=== PATIENT | male | born 1945 | race African-American/Black ===

== ENCOUNTER 2016-06-07 10:38 | Emergency (ER) | payer MEDICARE, OTHER ==
[~2016-06-07] VITALS: Ht 165.1 cm; Wt 59.0 kg
[~2016-06-07 10:38] MED LIST: ACET500T68 PO; ASPI-482 PO; ATOR10TA60 PO; FAMO20TA5 PO; LISI10TA2 PO; MEGE40TA PO; MELA3TAB PO
[2016-06-07] MEDS ORDERED: NAPROXEN 250 MG TABLET PO STA (11:26)
--- NOTE | 2016-06-07 11:33 | PHYS DOC ---
Past Medical History Past Medical History: GERD, High Cholesterol, Hypertension Additional Past Medical Histor: ALCOHOL ABUSE Past Surgical History: Other Additional Past Surgical Histo: UNKNOWN Alcohol Use: Heavy Drug Use: None Adult General Chief Complaint Chief Complaint: TESTICULAR PAIN OR INJURY HPI HPI Patient is a 70 year old male who presents with 2-3 weeks of right testicle pain and swelling, constant, gradually worsening, severe, achy. Denies f/c, n/v , hematuria, dysuria, abdominal pain, diarrhea, constipation. No urinary hesitation or frequency. No penile discharge. Review of Systems Review of Systems Constitutional: Denies fever or chills [] Eyes: Denies change in visual acuity, redness, or eye pain [] HENT: Denies nasal congestion or sore throat [] Respiratory: Denies cough or shortness of breath [] Cardiovascular: No additional information not addressed in HPI [] GI: Denies abdominal pain, nausea, vomiting, bloody stools or diarrhea [] : Denies dysuria or hematuria [] Musculoskeletal: Denies back pain or joint pain [] Integument: Denies rash or skin lesions [] Neurologic: Denies headache, focal weakness or sensory changes [] Endocrine: Denies polyuria or polydipsia [] Current Medications Current Medications Current Medications Medications (Trade) Dose Ordered Sig/Deepak Start Time Stop Time Status Last Admin Dose Admin Naproxen (Naprosyn) 250 mg 1X STAT 06/07/16 11:26 06/07/16 11:29 DC 06/07/16 12:06 250 MG Allergies Allergies Allergies Coded Allergies Type Severity Reaction Last Updated Verified No Known Drug Allergies 04/03/13 No Physical Exam Physical Exam Constitutional: Well developed, well nourished, no acute distress, non-toxic appearance. [] HENT: Normocephalic, atraumatic, bilateral external ears normal, oropharynx moist, nose normal. [] Eyes: PERRLA, EOMI. [] Neck: Normal range of motion, supple. [] Cardiovascular: Heart rate regular rhythm [] Lungs & Thorax: Bilateral breath sounds clear to auscultation [] Abdomen: Bowel sounds normal, soft, no tenderness. [] Genitourinary: No rash or discoloration, no penile discharge, has right testicle swelling that is tender, scrotum appears normal without rash/ discoloration/induration/warmth/crepitance, no perineal tenderness or palpable abnormality Skin: Warm, dry, no erythema, no rash. [] Back: Normal ROM. [] Extremities: No tenderness, ROM intact. [] Neurologic: Alert and oriented X 3, normal motor function, normal sensory function, no focal deficits noted. [] Psychologic: Affect normal, judgement normal, mood normal. [] Current Patient Data Vital Signs Vital Signs Date Time Temp Pulse Resp B/P Pulse Ox O2 Delivery O2 Flow Rate FiO2 06/07/16 12:00 82 18 138/77 98 Room Air 06/07/16 10:57 97.7 97.7 Lab Values Laboratory Tests Test 06/07/16 11:37 Urine Collection Type U cath Urine Color Rita Urine Clarity Cloudy Urine pH 6.0 Urine Specific [place] 1.020 Urine Protein Negativemg/dL (NEG-TRACE) Urine Glucose (UA) Negativemg/dL (NEG) Urine Ketones (Stick) Negativemg/dL (NEG) Urine Blood Trace (NEG) Urine Nitrite Positive (NEG) Urine Bilirubin Small (NEG) Urine Urobilinogen Dipstick 2.0mg/dL (0.2 mg/dL) Urine Leukocyte Esterase Large (NEG) Urine RBC 1-2/HPF (0-2) Urine WBC Tntc/HPF (0-4) Urine Bacteria Many/HPF (0-FEW) Radiology/Procedures Radiology/Procedures Ultrasound testicle/scrotum IMPRESSION: No testicular torsion is seen. Sonographic findings are consistent with bilateral epididymoorchitis worse on the right side. DICTATED and SIGNED BY: BACILIO MACK MD DATE: 06/07/16 8716 Course & Med Decision Making Course & Med Decision Making Pertinent Labs and Imaging studies reviewed. (See chart for details) Urine shows signs of infection and ultrasound shows signs of epididymoorchitis. Will treat with levofloxacin and NSAIDs. Recommend follow-up with urology and his primary care doctor. He and family understand and agree with plan. Dragon Disclaimer Dragon Disclaimer This electronic medical record was generated, in whole or in part, using a voice recognition dictation system. Departure Departure Impression: Primary Impression: Epididymo-orchitis without abscess Additional Impression: Acute cystitis without hematuria Disposition: 01 HOME, SELF-CARE Condition: STABLE Referrals: CLAUDIA GAO MD (PCP) CORNELIO FELIX DO Patient Instructions: Epididymitis Additional Instructions: Take levofloxacin as prescribed. Take naproxen twice a day as needed to help with pain and swelling; always take naproxen with a meal. Wear supportive underwear to help with pain. Follow-up with urology clinic and your primary care doctor within one week. Please call for appointment. Return for any concerns. Scripts Naproxen 375 Mg Tablet1 Tab PO BID #30 TAB Prov:Lesli MCCORMICK MD 06/07/16 Levofloxacin 500 Mg Tablet1 Tab PO DAILY #10 TAB Prov:Lesli MCCORMICK MD 06/07/16 Problem Qualifiers Lesli MCCORMICK MD Jun 07, 2016 11:33
[2016-06-07 11:45] LABS: BILIRUBIN,URINE SMALL (NEG); GLUCOSE,URINE NEGATIVE (NEG); NITRITE,URINE POSITIVE (NEG); PROTEIN,URINE NEGATIVE (NEG-TRACE)
[2016-06-07 11:59] LABS: BACTERIA,URINE MANY /HPF (0-FEW); WBC,URINE TNTC /HPF (0-4)
[2016-06-07 12:00] VITALS: BP 138/77
[2016-06-07] MEDS ORDERED: NAPR375T3 PO (12:32)
[2016-06-07] MEDS ORDERED: LEVO500T8 PO (12:32)
--- NOTE | 2016-06-07 12:41 | RAD ---
Duplex sonography of the scrotum and testicles History: Urinary tract infection with painful testes. Findings: Duplex sonography of the testicles and scrotum was performed including raymond scale evaluation and color flow and waveform spectral analysis. The longitudinal and AP and transverse dimensions of the right testicle are 2.8 cm and 2.7 cm and 2.5 cm respectively. The longitudinal and AP and transverse dimensions of the left testicle are 3.6 cm and 2.0 cm and 2.4 cm respectively. Both testicles demonstrate a mottled appearance but no discrete mass is seen. There is moderate enlargement of the right epididymis. There is moderate enlargement of the left epididymis. Hyperemia of the epididymis and testicles is seen on both sides more so on the right side. Small right-sided hydrocele is seen. IMPRESSION: No testicular torsion is seen. Sonographic findings are consistent with bilateral epididymoorchitis worse on the right side.
== END 2016-06-07 12:48 | disposition home or self-care (01) ==
LOC: ER 10:38
DX: N45.3 Epididymo-orchitis (principal); N30.00 Acute cystitis without hematuria; K21.9 Gastro-esophageal reflux disease without esophagitis; E78.00 Pure hypercholesterolemia, unspecified; I10 Essential (primary) hypertension
CPT/HCPCS: 76870; 81001; 87086; 99285-25

== ENCOUNTER 2017-07-15 18:56 | Emergency (ER) | payer MEDICARE, OTHER ==
[2017-07-15] MEDS: FLUORESCEIN OPHTH TEST STRIP. OS (19:35)
[2017-07-15] MEDS: TETRACAINE 0.5% OPHTH SOLUTION 4ML BOTTLE. OS (19:35)
== END 2017-07-15 20:23 | disposition home or self-care (01) ==
LOC: ER 18:56
DX: S05.02XA Injury of conjunctiva and corneal abrasion without foreign body, left eye, initial encounter (principal); K21.9 Gastro-esophageal reflux disease without esophagitis; E78.00 Pure hypercholesterolemia, unspecified; I10 Essential (primary) hypertension; F17.200 Nicotine dependence, unspecified, uncomplicated; X58.XXXA Exposure to other specified factors, initial encounter; Y93.89 Activity, other specified; Y99.8 Other external cause status; Y92.096 Garden or yard of other non-institutional residence as the place of occurrence of the external cause
CPT/HCPCS: 99283

== ENCOUNTER 2018-07-09 13:38 | Inpatient (IN) | payer MEDICARE, OTHER ==
[~2018-07-09] VITALS: Ht 167.6 cm; Wt 55.8 kg
[~2018-07-09 13:38] MED LIST changes: +LEVO500T8 PO; -MELA3TAB PO; +MELA3TAB2 PO; +NAPR-695 PO; +TOBR5DRO2 OS
[2018-07-09] MEDS ORDERED: IV NORMAL SALINE 1000ML BAG 1,000 ML IV ONE ×2 (14:00→15:45)
--- NOTE | 2018-07-09 14:15 | RAD ---
CT HEAD INDICATION: Headache COMPARISON: 09/13/2015 Exposure: One or more of the following individualized dose reduction techniques were utilized for this examination: 1. Automated exposure control 2. Adjustment of the mA and/or kV according to patient size 3. Use of iterative reconstruction technique TECHNIQUE: 5 mm contiguous axial images were obtained from the skull base to the vertex in both bone and soft tissue algorithm. FINDINGS: Mild bilateral periventricular white matter hypodensities likely chronic small vessel ischemic disease. No evidence of acute intracranial hemorrhage. No extra-axial fluid collections. 1.9 cm sellar/suprasellar mass identified similar to prior exam.. Ventricular size is appropriate. Basal cisterns are patent. No fractures identified.Nur-white differentiation is preserved.Globes and orbits are within normal limits. Paranasal sinuses and mastoid air cells are clear. IMPRESSION: 1. A 1.9 cm sella/suprasellar mass similar to prior exam. 2. Otherwise no acute intracranial findings. Electronically signed by: Trevor Brizuela MD (07/09/2018 2:12 PM) [facility]
[2018-07-09 14:26] LABS: BASO % 1 % (0-3); EOS # 0.2 x10^3/uL (0.0-0.7); EOS % 4 % (0-3); HEMATOCRIT 38.6 % (39.0-53.0); HEMOGLOBIN 12.9 g/dL (13.0-17.5); LYMPH # 2.2 x10^3/uL (1.0-4.8); LYMPH % 44 % (24-48); MEAN CORPUSCULAR HEMOGLOBIN 32 pg (25-35); MEAN CORPUSCULAR HGB CONC 33 g/dL (31-37); MEAN CORPUSCULAR VOLUME 94 fL (79-100); MONO # 0.5 x10^3/uL (0.0-1.1); MONO % 10 % (0-9); NEUT # 2.1 x10^3uL (1.8-7.7); NEUT % 41 % (31-73); PLATELET COUNT 209 x10^3/uL (140-400); RED BLOOD COUNT 4.09 x10^6/uL (4.30-5.70); RED CELL DISTRIBUTION WIDTH 12.7 % (11.5-14.5); WHITE BLOOD COUNT 5.1 x10^3/uL (4.0-11.0)
--- NOTE | 2018-07-09 14:29 | RAD ---
EXAM: CHEST 1 VIEW History: Weakness COMPARISON: 09/13/2015 TECHNIQUE: Single portable radiograph of the chest FINDINGS: The cardiac silhouette is unremarkable. The lungs are clear bilaterally. The costophrenic sulci are clear and well demarcated. IMPRESSION: No radiographic evidence of an acute cardiopulmonary process. Electronically signed by: Trevor Brizuela MD (07/09/2018 2:26 PM) [facility]
[2018-07-09 14:32] LABS: BILIRUBIN,URINE SMALL (NEG); CLARITY,URINE CLEAR; COLOR,URINE AMBER; NITRITE,URINE NEGATIVE (NEG); PH,URINE 5.5; PROTEIN,URINE NEGATIVE (NEG-TRACE)
[2018-07-09 14:43] LABS: PROTHROMBIN TIME PATIENT 14.1 SEC (11.7-14.0)
[2018-07-09 14:46] LABS: AMPHETAMINE/METHAMPHETAMINE NEG (NEG); BARBITURATES NEG (NEG); BENZODIAZEPINES NEG (NEG); CANNABINOIDS NEG (NEG); COCAINE NEG (NEG); METHADONE NEG (NEG); OPIATES NEG (NEG); PHENCYCLIDINE NEG (NEG)
[2018-07-09 14:47] LABS: CALCIUM 8.5 mg/dL (8.5-10.1); CREATININE 1.2 mg/dL (0.7-1.3); GFR 71.8; POTASSIUM 4.2 mmol/L (3.5-5.1)
[2018-07-09 14:49] LABS: BACTERIA,URINE 0 /HPF (0-FEW); RBC,URINE 0 /HPF (0-2); SQUAMOUS EPITHELIAL CELL,UR FEW /LPF; WBC,URINE 0 /HPF (0-4)
[2018-07-09 14:52] LABS: ALBUMIN 3.4 g/dL (3.4-5.0); ALBUMIN/GLOBULIN RATIO 0.9 (1.0-1.7); MAGNESIUM 1.8 mg/dL (1.8-2.4); TOTAL PROTEIN 7.2 g/dL (6.4-8.2)
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
[2018-07-09] MEDS ORDERED: cloNIDine HCL 0.1 MG TABLET PO PRN (15:45)
[2018-07-09] MEDS ORDERED: ONDANSETRON PF 4 MG/2 ML VIAL. IV PRN (15:45)
[2018-07-09] MEDS ORDERED: ACETAMINOPHEN 325 MG TABLET. PO PRN (15:45)
[2018-07-09 16:27] VITALS: BP 169/92
--- NOTE | 2018-07-09 16:52 | NUR ---
pt admitted to room 508. daughter Marya at bedside. oriented to room and call light. Addendum: 07/09/18 at 1657 by JUDITH WOODS RN daughter reports pt is supposed to take medication for his blood pressure but has refused since 2015
[2018-07-09 19:00] VITALS: BP 169/95
[2018-07-09 23:01] VITALS: BP 162/73
[2018-07-10 03:06] VITALS: BP 142/84
[2018-07-10 07:00] VITALS: BP 131/74
[2018-07-10 10:53] VITALS: BP 131/65
--- NOTE | 2018-07-10 11:04 | PDOC ---
Provider Note Provider Note Patient seen. History and Physical and combined discharge summary dictated. See dictation#[id number] TOR RINALDI MD Jul 10, 2018 11:04
[2018-07-10] MEDS ORDERED: AMLO5TAB10 PO (11:07)
[2018-07-10] MEDS ORDERED: ACET325T9 PO (11:07)
--- NOTE | 2018-07-10 11:09 | DISCH ---
DISCHARGE INSTRUCTIONS Condition on Discharge Condition on Discharge: Stable Activity After Discharge Activity Instructions for Disc: Resume previous activity Diet after Discharge Diet after Discharge: No Added Salt Checks after Discharge Checks after discharge: Check blood press - daily Contacting the after DC Call your doctor for: Concerns you may have Follow-Up Follow up with: in 5 days TOR RINALDI MD Jul 10, 2018 11:09
--- NOTE | 2018-07-10 11:23 | EKG ---
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
--- NOTE | 2018-07-10 11:27 | NUR ---
discharge order in for patient. however, per Dr. Rowe, pt cannot leave until neurology signs off.
[2018-07-10] MEDS ORDERED: amLODIPine BESYLATE 5 MG TABLET PO SCH (11:30)
[2018-07-10 12:17] VITALS: BP 131/65
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
--- NOTE | 2018-07-10 13:45 | NUR ---
pt discharged home w/ daughter Marya. meds and follow up reviewed. pt educated on smoke cessation again. stable upon DC. pt had already removed IV during night.
--- NOTE | 2018-07-10 14:17 | HP ---
ADMIT DATE: 07/09/2018 This is a combined history and physical and discharge summary. HISTORY OF PRESENTING ILLNESS: This 73-year-old male presented to the Emergency Room yesterday because of weakness, poor oral intake and headaches. Headaches were 8/10. In the Emergency Room, the patient was evaluated. A CT scan of head showed a 1.9 cm sellar and suprasellar mass similar to prior exam. No acute intracranial changes noted otherwise. Chest x-ray did not show any acute changes. WBC count was 5.1, hemoglobin 12.9, polys 41. Sodium 133, potassium 4.2, BUN 15, creatinine 1.2, AST 43, albumin 3.4. Troponin less than 0.017. BNP 206. Thyroid function was 2.352. Urine drug screen is negative. Urinalysis is negative also except for small bilirubin. Because of the headaches, the patient was admitted for further evaluation and management. REVIEW OF SYSTEMS: At present time, the patient denies any chest pains, nausea, vomiting, abdominal pain, headaches or any other issues. Even per staff, the patient has denied any pain or headache since he has been here. He is not a good historian, unable to do full systems review even though he is responding. No history of fall or trauma. No fever or chills. No dysuria. No diarrhea. No signs or symptoms suggestive of any focal neurovascular deficit. PAST MEDICAL HISTORY: The patient was last admitted here in 09/2015. At that time, he had metabolic encephalopathy, drug abuse with cocaine and marijuana in the urine, acute kidney injury that required hydration, chronic pituitary adenoma and UTI with E. coli. He has a history of hypertension, hyperlipidemia, gastroesophageal reflux disease, peptic ulcer disease and osteoarthritis. PAST SURGICAL HISTORY: He has had a hernia repair. FAMILY HISTORY: Brother had cancer. SOCIAL HISTORY: Half pack per day of tobacco for over 40 years. History of heavy alcohol use and drug abuse, apparently quit 7 years ago but during the previous admission in 2015, he had marijuana and cocaine in the urine. MEDICATIONS: The patient is supposed to be on some medications, but apparently he has not been taking any. ALLERGIES: None known any. PHYSICAL EXAMINATION: GENERAL: The patient is an elderly male who is alert, oriented, but has cognitive deficits, not in any acute distress. EYES: Pupils reacting to light. Conjunctivae pale. Sclerae muddy. HENT: Unremarkable. NECK: Supple. JVP normal. No thyromegaly. Trachea midline. LUNGS: Clear. CARDIOVASCULAR: S1, S2 regular. ABDOMEN: Soft, nontender, no guarding, no rigidity. Bowel sounds present. EXTREMITIES: No edema. CENTRAL NERVOUS SYSTEM: The patient is moving all extremities. No acute changes noted. He is alert and responsive, may have some cognitive deficits. LABORATORY FINDINGS: As noted earlier. FINAL DIAGNOSES: 1. Headaches, etiology not clear. 2. Chronic pituitary adenoma, 1.9 cm mass, stable. 3. Gastroesophageal reflux disease. 4. History of hypertension. 5. History of hyperlipidemia. 6. Peptic ulcer disease. 7. Osteoarthritis. 8. Likely dementia. PLAN: The patient is currently not taking any medications. I will send him home on Tylenol 650 mg p.o. q.6 hours p.r.n. for pain or headaches. A Neurology consult has been obtained with Dr. Crawford for Neurology evaluation and management. If the patient remains stable and if it is okay with Dr. Crawford, he can be discharged home today. See Dr. Guzmán in 5 days. For other discharge instructions, please refer to the discharge papers. CONDITION AT THE TIME OF DISCHARGE: Stable and improving. DISPOSITION: Home. ACTIVITY: As tolerated. For other details, please refer the discharge orders. TOR RINALDI MD DR: FAUSTO/jaun JOB#: [id number] / [id number] Beata Moody MD
== END 2018-07-10 13:51 | disposition home or self-care (01) | DRG 103 ==
LOC: ER 13:38 → 5 NORTH 15:00
PROVIDERS: ADMIT Internal Medicine; ATTEND Internal Medicine
DX: R51 Headache (principal); E78.5 Hyperlipidemia, unspecified; I10 Essential (primary) hypertension; K21.9 Gastro-esophageal reflux disease without esophagitis; E78.00 Pure hypercholesterolemia, unspecified; F02.80 Dementia in other diseases classified elsewhere, unspecified severity, without behavioral disturbance, psychotic disturbance, mood disturbance, and anxiety; E86.0 Dehydration; D35.2 Benign neoplasm of pituitary gland; M19.90 Unspecified osteoarthritis, unspecified site; G30.9 Alzheimer's disease, unspecified; Z87.11 Personal history of peptic ulcer disease; Z80.9 Family history of malignant neoplasm, unspecified
CPT/HCPCS: 36415; 70450; 71045; 80053; 80307; 81001; 82553; 83690; 83735; 83880; 84443; 84484; 85025; 85610; 85730; 93005; 96360; J7030; 99285-25

== ENCOUNTER 2018-08-17 13:08 | Emergency (ER) | payer MEDICARE, OTHER ==
[~2018-08-17] VITALS: Ht 165.1 cm; Wt 53.5 kg
[~2018-08-17 13:08] MED LIST changes: +ACET325T9 PO; +AMLO5TAB10 PO
[2018-08-17] MEDS ORDERED: IV NORMAL SALINE 1000ML BAG 1,000 ML IV ONE (14:15)
--- NOTE | 2018-08-17 14:44 | RAD ---
Chest radiograph 08/17/2018 2:15 PM INDICATION: Altered mental status COMPARISON: July 09, 2018 TECHNIQUE: Frontal view of the chest is provided. FINDINGS: The cardiomediastinal silhouette is within normal limits. There are no pleural effusions. There is no pulmonary vascular congestion. There is no pneumothorax. The lungs are clear. No significant osseous abnormality is identified. Prominent gas-filled bowel loops are identified in the upper abdomen. IMPRESSION: No acute cardiopulmonary process. Prominent gas-filled bowel loops are identified in the upper abdomen may represent ileus. Electronically signed by: Sylvia Pena MD (08/17/2018 2:41 PM) [id number]
--- NOTE | 2018-08-17 14:51 | RAD ---
PQRS Compliance Statement: One or more of the following individualized dose reduction techniques were utilized for this examination: 1. Automated exposure control 2. Adjustment of the mA and/or kV according to patient size 3. Use of iterative reconstruction technique CT head without contrast 08/17/2018 2:15 PM INDICATION: Altered mental status COMPARISON: July 09, 2018 TECHNIQUE: Multiple axial CT images of the head were obtained from skull base through the vertex without intravenous contrast. 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 Ventricles, sulci and basal cisterns are within normal limits. There is no hydrocephalus. Low-attenuation in the periventricular white matter is suggestive of chronic small vessel ischemic changes. Nur-white matter differentiation is normal. There is no acute intracranial hemorrhage. There is no mass effect or midline shift. Posterior fossa is normal in appearance. Visualized portions of the orbits are normal. Paranasal sinuses are well aerated. Mastoid air cells are well aerated. Scalp and calvaria are normal. Stable 12 mm cystic lesion along the left skin superficial to the parotid gland. IMPRESSION: No acute intracranial hemorrhage. Stable 2.3 cm sellar and suprasellar mass. Low-attenuation in the periventricular white matter is suggestive of chronic small vessel ischemic changes. Stable 12 mm cystic lesion superficial left parotid gland, identified along the skin.. Electronically signed by: Sylvia Pena MD (08/17/2018 2:49 PM) [id number]
[2018-08-17 14:55] LABS: BASO % 1 % (0-3); EOS # 0.1 x10^3/uL (0.0-0.7); EOS % 3 % (0-3); HEMATOCRIT 36.1 % (39.0-53.0); HEMOGLOBIN 12.5 g/dL (13.0-17.5); LYMPH # 1.6 x10^3/uL (1.0-4.8); LYMPH % 38 % (24-48); MEAN CORPUSCULAR HEMOGLOBIN 33 pg (25-35); MEAN CORPUSCULAR HGB CONC 35 g/dL (31-37); MEAN CORPUSCULAR VOLUME 95 fL (79-100); MONO # 0.5 x10^3/uL (0.0-1.1); MONO % 11 % (0-9); NEUT # 2.1 x10^3/uL (1.8-7.7); NEUT % 48 % (31-73); PLATELET COUNT 204 x10^3/uL (140-400); RED BLOOD COUNT 3.81 x10^6/uL (4.30-5.70); RED CELL DISTRIBUTION WIDTH 12.5 % (11.5-14.5); WHITE BLOOD COUNT 4.3 x10^3/uL (4.0-11.0)
[2018-08-17 15:00] LABS: CALCIUM 8.7 mg/dL (8.5-10.1); CREATININE 1.1 mg/dL (0.7-1.3); GFR 79.4; POTASSIUM 4.2 mmol/L (3.5-5.1)
[2018-08-17 15:06] LABS: PROTHROMBIN TIME PATIENT 14.8 SEC (11.7-14.0)
--- NOTE | 2018-08-17 15:06 | EKG ---
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
[2018-08-17 15:13] LABS: ALBUMIN 3.5 g/dL (3.4-5.0); ALBUMIN/GLOBULIN RATIO 0.8 (1.0-1.7); MAGNESIUM 2.1 mg/dL (1.8-2.4); TOTAL BILIRUBIN 1.5 mg/dL (0.2-1.0); TOTAL PROTEIN 7.9 g/dL (6.4-8.2)
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
[2018-08-17 16:56] LABS: BILIRUBIN,URINE NEGATIVE (NEG); CLARITY,URINE CLEAR; COLOR,URINE YELLOW; NITRITE,URINE NEGATIVE (NEG); PH,URINE 6.5; PROTEIN,URINE NEGATIVE (NEG-TRACE); UROBILINOGEN,URINE >=8.0 mg/dL (0.2 mg/dL)
[2018-08-17 17:03] LABS: BARBITURATES NEG (NEG); BENZODIAZEPINES NEG (NEG); CANNABINOIDS NEG (NEG); COCAINE NEG (NEG); METHADONE NEG (NEG); OPIATES NEG (NEG); PHENCYCLIDINE NEG (NEG)
[2018-08-17 17:06] LABS: BACTERIA,URINE 0 /HPF (0-FEW); RBC,URINE 0 /HPF (0-2); SQUAMOUS EPITHELIAL CELL,UR FEW /LPF
[2018-08-17 17:07] LABS: AMPHETAMINE/METHAMPHETAMINE NEG (NEG)
[2018-08-17 17:15] VITALS: BP 130/77
== END 2018-08-17 17:48 | disposition home or self-care (01) ==
LOC: ER 13:08
DX: R41.82 Altered mental status, unspecified (principal); F03.90 Unspecified dementia, unspecified severity, without behavioral disturbance, psychotic disturbance, mood disturbance, and anxiety; K21.9 Gastro-esophageal reflux disease without esophagitis; E78.00 Pure hypercholesterolemia, unspecified; I10 Essential (primary) hypertension; R41.841 Cognitive communication deficit; Z90.49 Acquired absence of other specified parts of digestive tract
CPT/HCPCS: 36415; 70450; 71045; 80053; 80307; 81001; 82140; 83605; 83690; 83735; 84484; 85025; 85610; 85730; 87086; 93005; 96360; 99285; J7030

== ENCOUNTER 2018-10-22 20:59 | Inpatient (IN) | payer MEDICARE, OTHER ==
[~2018-10-22] VITALS: Ht 172.7 cm; Wt 48.5 kg
[~2018-10-22 20:59] MED LIST changes: -MELA3TAB2 PO; +MELA3TAB56 PO
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
[2018-10-22 21:40] LABS: BASO # 0.1 x10^3/uL (0.0-0.2); BASO % 1 % (0-3); EOS # 0.1 x10^3/uL (0.0-0.7); EOS % 2 % (0-3); HEMATOCRIT 32.4 % (39.0-53.0); HEMOGLOBIN 11.3 g/dL (13.0-17.5); LYMPH # 3.4 x10^3/uL (1.0-4.8); LYMPH % 58 % (24-48); MEAN CORPUSCULAR HEMOGLOBIN 32 pg (25-35); MEAN CORPUSCULAR HGB CONC 35 g/dL (31-37); MEAN CORPUSCULAR VOLUME 92 fL (79-100); MONO # 0.3 x10^3/uL (0.0-1.1); MONO % 6 % (0-9); NEUT # 1.9 x10^3/uL (1.8-7.7); NEUT % 33 % (31-73); PLATELET COUNT 322 x10^3/uL (140-400); RED BLOOD COUNT 3.51 x10^6/uL (4.30-5.70); RED CELL DISTRIBUTION WIDTH 17.1 % (11.5-14.5); WHITE BLOOD COUNT 5.9 x10^3/uL (4.0-11.0)
[2018-10-22 21:41] LABS: CALCIUM 9.3 mg/dL (8.5-10.1); CREATININE 1.3 mg/dL (0.7-1.3); GFR 65.5; POTASSIUM 4.4 mmol/L (3.5-5.1)
--- NOTE | 2018-10-22 21:52 | RAD ---
CHEST AP ONLY Clinical Indication: Jaundice and cough Comparison: 08/17/2018 portable chest x-ray exam. Findings: Portable upright frontal view of the chest was obtained. Limited pulmonary inflation noted. Calcified granuloma involves the left lung base. The cardiomediastinal silhouette is normal. Lungs are clear. There is no pneumothorax. No pleural effusion is appreciated. No acute bone abnormality. IMPRESSION: No acute cardiopulmonary process. Electronically signed by: Yossi Zamora MD (10/22/2018 9:49 PM) [facility]
[2018-10-22] MEDS ORDERED: IOHEXOL 300 MG/ML 100ML VIAL. IV ONE (22:00)
[2018-10-22] MEDS ORDERED: CONTRAST GIVEN. MC PRN (22:00)
[2018-10-22] MEDS ORDERED: IV NORMAL SALINE 1000ML BAG 1,000 ML IV ONE (22:00)
[2018-10-22 22:04] LABS: ALBUMIN 2.6 g/dL (3.4-5.0); ALBUMIN/GLOBULIN RATIO 0.6 (1.0-1.7); TOTAL PROTEIN 7.2 g/dL (6.4-8.2)
[2018-10-22 22:05] LABS: TOTAL BILIRUBIN 25.6 mg/dL (0.2-1.0)
[2018-10-22 22:30] LABS: BILIRUBIN,URINE LARGE (NEG); CLARITY,URINE CLEAR; COLOR,URINE ORANGE; NITRITE,URINE NEGATIVE (NEG); PH,URINE 5.5; PROTEIN,URINE NEGATIVE (NEG-TRACE)
--- NOTE | 2018-10-22 22:32 | RAD ---
CT head without contrast dated 10/22/2018. Comparison made to 08/17/2018. CLINICAL INDICATION: Altered mental status. TECHNIQUE: Contiguous axial imaging the head was performed from skull base to vertex. No contrast administered. One or more of the following individualized dose reduction techniques were utilized for this examination: 1. Automated exposure control 2. Adjustment of the mA and/or kV according to patient size 3. Use of iterative reconstruction technique. FINDINGS: Ventricles and sulci are mildly prominent for age. No midline shift or mass effect. There is mild to moderate patchy low density in the deep/subcortical periventricular white matter, unchanged. No hemorrhage or extra-axial collection. Posterior fossa and brainstem unremarkable. Prominent soft tissue mass at the sella turcica with extension superiorly to the suprasellar cistern. This is not significant changed from prior study. Visualized paranasal sinuses and mastoid air cells are clear. No apparent calvarial abnormality. Small cystic focus near the left parotid gland is unchanged. IMPRESSION: 1. No evidence of acute intracranial abnormality. 2. Suprasellar mass, unchanged. 3. Mild chronic small vessel ischemic changes and atrophy. 4. Small cystic nodule at the superficial left parotid gland, unchanged. Electronically signed by: Dwight Grewal MD (10/22/2018 10:29 PM) [facility]
[2018-10-22 22:39] LABS: BACTERIA,URINE 0 /HPF (0-FEW); HYALINE CASTS, URINE FEW /HPF; SQUAMOUS EPITHELIAL CELL,UR MOD /LPF; WBC,URINE OCC /HPF (0-4)
[2018-10-22 22:40] LABS: GRANULAR CASTS,URINE OCCASIONAL /HPF
--- NOTE | 2018-10-22 23:08 | RAD ---
CT abdomen and pelvis with contrast PQRS statement: CT scans at this facility use dose reduction including either automated exposure control, iterative reconstructions, and /or weight based radiation dosing via mA and kV modification when appropriate to reduce radiation dose to as low as reasonably achievable. HISTORY: Jaundice. Altered mental status. Alcohol abuse. TECHNIQUE: Helical CT imaging abdomen and pelvis 75 mL Isovue 370 intravenous contrast. Abdomen findings: Left lower lobe 6 mm nodule image 4. There is hypervascular thickened wall enhancement of the gallbladder. Calcified splenic granulomas. Kidneys, adrenal glands and pancreas are unremarkable. Subcentimeter hypodensity left renal lower pole too small to characterize most likely small cysts. Partial small bowel resection right lower quadrant with enteric anastomosis. The appendix is negative. No bowel obstruction or inflammatory change. Aortoiliac calcified plaque. No abdominal fluid or adenopathy. Narrowing of the superior mesenteric artery due to plaquing. Bones unremarkable. Pelvis findings: Bladder, rectum and bones are unremarkable. Hypodensity in the right inguinal canal perhaps due to prior inguinal hernia repair with mesh plug. Prostate enlarged. Bones unremarkable. IMPRESSION: 1. Hypervascular thickened wall enhancement of the gallbladder raising suspicion of cholecystitis. 2. The appendix is negative. 3. 6 mm pulmonary nodule left lower lobe. Consider follow-up CT imaging in 6-12 months. Electronically signed by: Rey Ramsay MD (10/22/2018 11:06 PM) [facility]
[2018-10-22 23:17] LABS: OVALOCYTES FEW; PLT ESTIMATE ADEQUATE (ADEQUATE); TARGET CELLS MOD
[2018-10-22] MEDS ORDERED: PIPERACILLIN/TAZOBACTAM 3.375 GM in IV NORMAL SALINE 50ML 50 ML IV ONE (23:45)
[2018-10-23] VITALS (7 sets, daily range): BP systolic 104–147; BP diastolic 71–84
--- NOTE | 2018-10-23 00:19 | RAD ---
Limited abdomen ultrasound HISTORY: Elevated liver function tests. Jaundice. COMPARISON: CT abdomen and pelvis October 22, 2018. FINDINGS: Normal liver echogenicity. No liver mass or nodularity documented. Upper segments of the liver poorly visualized due to rib shadowing. Gallbladder wall mildly thickened measuring 4 mm. No gallstones. No pericholecystic fluid or edema. No sonographic Zuleta sign documented. No biliary ductal dilation common bile duct diameter 4 mm. There is hepatopedal portal vein blood flow. The kidneys, spleen, pancreas and aorta and IVC were not evaluated. IMPRESSION: Mild gallbladder wall thickening. No gallstones evident. This is a nonspecific finding, can be observed with cholecystitis although no inflammatory causes of thickening such as right-sided congestive heart failure, hypoalbuminemia or liver disease are also possibilities. Electronically signed by: Rey Ramsay MD (10/23/2018 12:16 AM) [facility]
[2018-10-23] MEDS ORDERED: ONDANSETRON PF 4 MG/2 ML VIAL. IV PRN (00:45)
--- NOTE | 2018-10-23 07:54 | EKG ---
[facility] [address] [place] [address] Test Date: 2018-10-22 Test Time: 21:32:17 Pat Name: ROSANNA PATEL Department: Room: Gender: M Square Cutter: : 1945 Requested By: JAIRO COBOS Order Number: [id number] Reading MD: Measurements Intervals [place] Rate: 59 P: 39 ME: 202 QRS: 23 QRSD: 84 T: 41 QT: 416 QTc: 412 Interpretive Statements SINUS RHYTHM LOW LIMB LEAD VOLTAGE NO SPECIFIC ECG ABNORMALITIES RI6.01 No previous ECG available for comparison
--- NOTE | 2018-10-23 10:11 | PDOC ---
Provider Note Provider Note Patient seen. History and Physical dictated. See dictation#[id number] TOR RINALDI MD Oct 23, 2018 10:11
--- NOTE | 2018-10-23 10:28 | HP ---
ADMIT DATE: 10/22/2018 PHYSICIAN: Beata Guzmán MD HISTORY OF PRESENT ILLNESS: This is an 73-year-old -[place] male who was brought to the Emergency Room by the family because of a change in mental status and weakness. The patient has a history of dementia, hypertension and hyperlipidemia. Apparently, the patient has not been eating and has been on Megace. The patient was noted to be yellow by the patient's daughter who had last seen him 3 weeks ago. Because of his weakness, decreased oral intake and looking yellow, the patient was brought to the Emergency Room. In the Emergency Room, the patient was noted to have an obstructive jaundice. Total bilirubin was 25.6, AST is 94, ALT 81, alkaline phosphatase 201. Albumin 2.6, lipase 161. Sodium 138, potassium 4.4, BUN 19, creatinine 1.3. WBC count was 5.9, hemoglobin 11.3. Urinalysis is negative except for large bilirubin in the urine. A CT scan of abdomen and pelvis showed hypervascular thickened wall enhancement of the gallbladder, raising suspicion of cholecystitis. Appendix is negative. A 6 mm pulmonary nodule in left lower lobe. Consider followup CT imaging in 6-12 months. Ultrasound showed mild gallbladder wall thickening. Chest x-ray does not show any acute changes. The patient is a very poor historian. He is confused and all he tells me that he is feeling cold and would like to cover up and keeps trying to cover up and is not cooperative. REVIEW OF SYSTEMS: As noted in the history of present illness, unable to get any more information from the patient, unable to do full systems review. I looked at his previous records and he has lost about 4.5 kilograms in last 2 months. PAST MEDICAL HISTORY: The patient was last admitted here in 07/2018 because of headaches. The patient has a history of chronic pituitary adenoma 1.9 cm mass, stable, has history of gastroesophageal reflux disease, hypertension, hyperlipidemia, peptic ulcer disease, osteoarthritis. The patient was also previously admitted here in 09/2015. At that time, he had metabolic encephalopathy, drug abuse with cocaine and marijuana in the urine, acute kidney injury that required hydration and infection with E. coli. PAST SURGICAL HISTORY: The patient has had hernia repair, has pituitary adenoma. FAMILY HISTORY: Brother had cancer. SOCIAL HISTORY: Half pack per day of tobacco for over 40 years. History of heavy alcohol use and drug abuse, apparently quit 7 years ago, but in September, he had marijuana and cocaine in the urine. MEDICATIONS: I am not sure if he is taking any medications, but apparently he is on amlodipine 5 mg daily. ALLERGIES: None known any. PHYSICAL EXAMINATION: GENERAL: The patient is an elderly -[place] male who appears to be weak and malnourished and chronically ill. He is not in any acute distress. He is confused and not cooperative. VITAL SIGNS: Temperature 98.2, pulse 64 per minute, respirations 26 per minute, blood pressure 160/70. Currently, his respirations are 16 per minute. EYES: Pupils reacting to light. Conjunctivae pale. Sclerae yellow. SKIN: Warm and dry. Skin is icteric. THROAT: The patient is not cooperative. Unable to examine the throat. NECK: JVP normal. Neck is supple. LUNGS: Decreased breath sounds at bases. CARDIOVASCULAR: S1, S2 regular. ABDOMEN: Soft. Questionable tenderness in the right upper quadrant; however, the patient is not cooperative and I am not able to fully examine the abdomen. There is no guarding or rigidity. Bowel sounds present. EXTREMITIES: No edema. CENTRAL NERVOUS SYSTEM: Weak, confused, not cooperative. Moves extremities. LABORATORY FINDINGS: As noted earlier. FINAL DIAGNOSES: 1. Obstructive jaundice, etiology not clear. 2. Hypertension. 3. Acute metabolic encephalopathy. 4. Weight loss. 5. A 6 mm nodule in the left lower lung. 6. History of alcohol abuse and marijuana abuse and cocaine abuse. 7. Failure to thrive. 8. History of gastroesophageal reflux disease and peptic ulcer disease. 9. Osteoarthritis 10. History of hyperlipidemia. 11. Chronic pituitary adenoma. PLAN: Consult Dr. Ochoa for GI evaluation and management. I will consult Dr. Way for surgical evaluation and management. I will start him on IV fluids D5 half normal saline with KCl 20 mEq at 80 mL per hour. Keep him n.p.o. until the patient is seen by the specialist. The patient was given 1 dose of IV Zosyn yesterday. The patient is otherwise asymptomatic. Zosyn may actually make the liver function worse. I will await the input from the specialist. For details, please refer to the orders. Prognosis of this patient is extremely poor. TOR RINALDI MD DR: FAUSTO/jaun JOB#: [id number] / [id number]
--- NOTE | 2018-10-23 11:52 | PDOC2 ---
GI CONSULT Reason For Consult: Jaundice HPI: HPI: 73 y/o male brought to ER by daughter. When she went to vist, found confused, not eating and jaundiced. Little history from patient as known dementia; lives with son. Bulk of history from daughter. Imaging not suggestive of obstruction or meaningful CLD. Carries diagnosis of GERD, though denies heartburn or dysphagia. Daughter mentions taking anti-secretory at home. She recalls no PUD, though does recall operation for "twisted bowels" at . No prior GB, liver or pancreatic history. May still be smoking. Prior h/o heavy alcohol use. Old tox screens positive for THC and cocaine. Long-standing issues with constipation; diarrhea with laxatives. No h/o overt bleeding. Appearance of weight loss. No N, V. GIFH unclear and not obtainable from patient. Can docu ment colonoscopy in 2007 showing internal hemorrhoids only. Daughter says taking Megace at home as appetite stimulant. PMH: PMH: Dementia, stable suprasellar mass, HTN, HLP, OA. S/p surgery for SBO(?), hernia repair. FH: Family History: Cancer Social History: ALCOHOL: other (heavily in the past) Drugs: None, Other (has in the past) ROS: Cannot obtain reliably from patient due to dementia. Vitals: Vitals: Vital Signs Date Time Temp Pulse Resp B/P (MAP) Pulse Ox O2 Delivery O2 Flow Rate FiO2 10/23/18 08:13 Room Air 10/23/18 07:00 97.8 64 16 135/75 (95) 96 97.8 Labs: Labs: Laboratory Tests Test 10/22/18 19:20 10/22/18 22:24 White Blood Count 5.9 x10^3/uL (4.0-11.0) Red Blood Count 3.51 x10^6/uL (4.30-5.70) Hemoglobin 11.3 g/dL (13.0-17.5) Hematocrit 32.4 % (39.0-53.0) Mean Corpuscular Volume 92 fL (79-100) Mean Corpuscular Hemoglobin 32 pg (25-35) Mean Corpuscular Hemoglobin Concent 35 g/dL (31-37) Red Cell Distribution Width 17.1 % (11.5-14.5) Platelet Count 322 x10^3/uL (140-400) Neutrophils (%) (Auto) 33 % (31-73) Lymphocytes (%) (Auto) 58 % (24-48) Monocytes (%) (Auto) 6 % (0-9) Eosinophils (%) (Auto) 2 % (0-3) Basophils (%) (Auto) 1 % (0-3) Neutrophils # (Auto) 1.9 x10^3/uL (1.8-7.7) Lymphocytes # (Auto) 3.4 x10^3/uL (1.0-4.8) Monocytes # (Auto) 0.3 x10^3/uL (0.0-1.1) Eosinophils # (Auto) 0.1 x10^3/uL (0.0-0.7) Basophils # (Auto) 0.1 x10^3/uL (0.0-0.2) Platelet Estimate Adequate (ADEQUATE) Giant Platelets Occ Target Cells Mod Ovalocytes Few Sodium Level 138 mmol/L (136-145) Potassium Level 4.4 mmol/L (3.5-5.1) Chloride Level 104 mmol/L (98-107) Carbon Dioxide Level 22 mmol/L (21-32) Anion Gap 12 (6-14) Blood Urea Nitrogen 19 mg/dL (8-26) Creatinine 1.3 mg/dL (0.7-1.3) Estimated GFR (Cockcroft-Gault) 65.5 BUN/Creatinine Ratio 15 (6-20) Glucose Level 86 mg/dL (70-99) Lactic Acid Level 1.1 mmol/L (0.4-2.0) Calcium Level 9.3 mg/dL (8.5-10.1) Total Bilirubin 25.6 mg/dL (0.2-1.0) Aspartate Amino Transf (AST/SGOT) 94 U/L (15-37) Alanine Aminotransferase (ALT/SGPT) 81 U/L (16-63) Alkaline Phosphatase 201 U/L (46-116) Ammonia 33 mcmol/L (11-34) Total Protein 7.2 g/dL (6.4-8.2) Albumin 2.6 g/dL (3.4-5.0) Albumin/Globulin Ratio 0.6 (1.0-1.7) Lipase 161 U/L (73-393) Urine Collection Type U cath Urine Color [place] Urine Clarity Clear Urine pH 5.5 Urine Specific [place] 1.020 Urine Protein Negative mg/dL (NEG-TRACE) Urine Glucose (UA) Negative mg/dL (NEG) Urine Ketones (Stick) Negative mg/dL (NEG) Urine Blood Small (NEG) Urine Nitrite Negative (NEG) Urine Bilirubin Large (NEG) Urine Urobilinogen Dipstick 1.0 mg/dL (0.2 mg/dL) Urine Leukocyte Esterase Small (NEG) Urine RBC 1-2 /HPF (0-2) Urine WBC Occ /HPF (0-4) Urine Squamous Epithelial Cells Mod /LPF Urine Bacteria 0 /HPF (0-FEW) Urine Hyaline Casts Few /HPF Urine Granular Casts Occasional /HPF Urine Mucus Marked /LPF Allergies: Coded Allergies: No Known Drug Allergies (Unverified , 04/03/13) Medications: Current Medications Medications (Trade) Dose Ordered Sig/Deepak Route PRN Reason Start Time Stop Time Status Last Admin Dose Admin Sodium Chloride 1,000 ml @ 1,000 mls/hr 1X ONCE IV 10/22/18 22:00 10/22/18 22:59 DC 10/22/18 21:35 Iohexol (Omnipaque 300 Mg/ml) 75 ml 1X ONCE IV 10/22/18 22:00 10/22/18 22:01 DC 10/22/18 22:10 Piperacillin Sod/ Tazobactam Sod 3.375 gm/Sodium Chloride 50 ml @ 100 mls/hr 1X ONCE IV 10/22/18 23:45 10/23/18 00:14 DC 10/23/18 00:00 Imaging: Imaging: On CT: IMPRESSION: 1. Hypervascular thickened wall enhancement of the gallbladder raising suspicion of cholecystitis. 2. The appendix is negative. 3. 6 mm pulmonary nodule left lower lobe. Consider follow-up CT imaging in 6-12 months. On sonogram: IMPRESSION: Mild gallbladder wall thickening. No gallstones evident. This is a nonspecific finding, can be observed with cholecystitis although no inflammatory causes of thickening such as right-sided congestive heart failure, hypoalbuminemia or liver disease are also possibilities. PE: GEN: NAD, cachectic HEENT: Atraumatic, PERRLA LUNGS: CTAB HEART: RRR, no murmurs ABD: NABS, S/ND/NT, no masses EXTREMITY: No edema SKIN: No rashes, jaundiced NEURO/PSYCH: Awake, unclearly oriented. Other grossly intact. A/P: A/P: IMP: Jaundice. Not obstructive by imaging. Other LFT's not very impressive. Would suspect drug-induced cholestasis, perhaps from the Megace. Unknown toxin possible. Doubtful viral issue; bili too high. Outside chance of alcoholic hepatitis if surrepticious alcohol. Unclear other GI history/issues. REC: Tox screen Fractionate bili Hepatitis A testing; can occasionally be cholestatic. Hold Megace. Marinol if need appetite stimulant? --Other pending. Thank you for allowing me to assist in the care of this patient. Please call if questions. EHSAN CLEMENS MD Oct 23, 2018 11:52
[2018-10-23 12:30] LABS: BARBITURATES NEG (NEG); BENZODIAZEPINES NEG (NEG); CANNABINOIDS NEG (NEG); COCAINE NEG (NEG); METHADONE NEG (NEG); OPIATES NEG (NEG); PHENCYCLIDINE NEG (NEG)
[2018-10-23 12:33] LABS: AMPHETAMINE/METHAMPHETAMINE NEG (NEG)
[2018-10-23] MEDS: POTASSIUM CL 20MEQ D5-0.45NACL 1,000 ML IV SCH ×2 (12:36→23:00)
[2018-10-23] MEDS: amLODIPine BESYLATE 5 MG TABLET PO SCH (12:37)
[2018-10-24 03:40] VITALS: BP 154/76
[2018-10-24 07:30] VITALS: BP 134/69
[2018-10-24] MEDS: POTASSIUM CL 20MEQ D5-0.45NACL 1,000 ML IV SCH ×2 (07:55→22:57)
[2018-10-24] MEDS: amLODIPine BESYLATE 5 MG TABLET PO SCH (08:02)
--- NOTE | 2018-10-24 08:24 | PDOC2 ---
AVE IQBAL Velma SENIOR BIOSTATISTICIAN 10/24/18 0824: CONSULT Date of Consult Date of Consult DATE: 10/24/18 TIME: 08:19 Reason for Consult Reason for Consult: jaundice Referring Physician Referring Physician: Dr Guzmán Identification/Chief Complaint Chief Complaint increased confusion Source Source: Chart review, Patient History of Present Illness Reason for Visit: Patient unable to provide any history--with confusion, dementia Has a sitter present in room Admitted with acute mental status changes, weakness, poor po intake Records indicate hx of alcohol abuse Past Medical History Cardiovascular: HTN, Hyperlipidemia CENTRAL NERVOUS SYSTEM: Dementia GI: GERD, Peptic Ulcer disease Heme/Onc: No pertinent hx Hepatobiliary: No pertinent hx Psych: No pertinent hx Musculoskeletal: Osteoarthritis Rheumatologic: No pertinent hx Infectious disease: No pertinent hx Renal/: UTI Endocrine: No pertinent hx Past Surgical History Past Surgical History: Colon Resection Family History Family History: Cancer, Family History Unknown Social History ALCOHOL: other (heavily in the past) Drugs: None, Other (has in the past) Lives: Alone Domestic Violence: Neg Current Problem List Problem List Problems Medical Problems: (1) Altered mental status Status: Acute (2) Failure to thrive Status: Chronic (3) Hypertension Status: Chronic (4) Jaundice Status: Acute (5) Osteoarthritis Status: Chronic (6) Pituitary adenoma Status: Chronic Current Medications Current Medications Current Medications Sodium Chloride 1,000 ml @ 1,000 mls/hr 1X ONCE IV Last administered on 10/22/18at 21:35; Start 10/22/18 at 22:00; Stop 10/22/18 at 22:59; Status DC Iohexol (Omnipaque 300 Mg/ml) 75 ml 1X ONCE IV Last administered on 10/22/18at 22:10; Start 10/22/18 at 22:00; Stop 10/22/18 at 22:01; Status DC Info (CONTRAST GIVEN -- Rx MONITORING) 1 each PRN DAILY PRN MC SEE COMMENTS; Start 10/22/18 at 22:00; Stop 10/24/18 at 21:59 Piperacillin Sod/ Tazobactam Sod 3.375 gm/Sodium Chloride 50 ml @ 100 mls/hr 1X ONCE IV Last administered on 10/23/18at 00:00; Start 10/22/18 at 23:45; Stop 10/23/18 at 00:14; Status DC Ondansetron HCl (Zofran) 4 mg PRN Q8HRS PRN IV NAUSEA/VOMITING 1ST CHOICE; Start 10/23/18 at 00:45; Stop 10/24/18 at 00:44; Status DC Amlodipine Besylate (Norvasc) 5 mg DAILY PO Last administered on 10/24/18at 08:02; Start 10/23/18 at 09:00 Potassium Chloride/Dextrose/ Sod Cl 1,000 ml @ 80 mls/hr [id number] IV Last administered on 10/24/18at 07:55; Start 10/23/18 at 10:30 Active Scripts Active Amlodipine Besylate 5 Mg Tablet 5 Mg PO DAILY 30 Days Tylenol (Acetaminophen) 325 Mg Tablet 650 Mg PO PRN Q4HRS PRN 30 Days Allergies Allergies: Coded Allergies: No Known Drug Allergies (Unverified , 04/03/13) ROS Review of System unable to obtain due to mental status Physical Exam General: Cooperative, Other (dementia, confusion) HEENT: Atraumatic, Mucous membr. moist/pink, Other (jaundice) Lungs: Clear to auscultation, Normal air movement Heart: Regular rate, Normal S1, Normal S2 Abdomen: Soft, No tenderness Extremities: No clubbing, No cyanosis Skin: No breakdown, No significant lesion Neuro: Normal tone MUSCULOSKELETAL: No deformity, No swelling Vitals VITALS Vital Signs Date Time Temp Pulse Resp B/P (MAP) Pulse Ox O2 Delivery O2 Flow Rate FiO2 10/24/18 08:02 62 154/76 10/24/18 07:30 16 100 Room Air 10/24/18 03:40 97.5 97.5 Labs Labs Laboratory Tests Test 10/22/18 19:20 10/22/18 22:24 10/23/18 11:55 10/23/18 12:40 White Blood Count 5.9 x10^3/uL (4.0-11.0) Red Blood Count 3.51 x10^6/uL (4.30-5.70) Hemoglobin 11.3 g/dL (13.0-17.5) Hematocrit 32.4 % (39.0-53.0) Mean Corpuscular Volume 92 fL (79-100) Mean Corpuscular Hemoglobin 32 pg (25-35) Mean Corpuscular Hemoglobin Concent 35 g/dL (31-37) Red Cell Distribution Width 17.1 % (11.5-14.5) Platelet Count 322 x10^3/uL (140-400) Neutrophils (%) (Auto) 33 % (31-73) Lymphocytes (%) (Auto) 58 % (24-48) Monocytes (%) (Auto) 6 % (0-9) Eosinophils (%) (Auto) 2 % (0-3) Basophils (%) (Auto) 1 % (0-3) Neutrophils # (Auto) 1.9 x10^3/uL (1.8-7.7) Lymphocytes # (Auto) 3.4 x10^3/uL (1.0-4.8) Monocytes # (Auto) 0.3 x10^3/uL (0.0-1.1) Eosinophils # (Auto) 0.1 x10^3/uL (0.0-0.7) Basophils # (Auto) 0.1 x10^3/uL (0.0-0.2) Platelet Estimate Adequate (ADEQUATE) Giant Platelets Occ Target Cells Mod Ovalocytes Few Sodium Level 138 mmol/L (136-145) Potassium Level 4.4 mmol/L (3.5-5.1) Chloride Level 104 mmol/L (98-107) Carbon Dioxide Level 22 mmol/L (21-32) Anion Gap 12 (6-14) Blood Urea Nitrogen 19 mg/dL (8-26) Creatinine 1.3 mg/dL (0.7-1.3) Estimated GFR (Cockcroft-Gault) 65.5 BUN/Creatinine Ratio 15 (6-20) Glucose Level 86 mg/dL (70-99) Lactic Acid Level 1.1 mmol/L (0.4-2.0) Calcium Level 9.3 mg/dL (8.5-10.1) Total Bilirubin 25.6 mg/dL (0.2-1.0) Aspartate Amino Transf (AST/SGOT) 94 U/L (15-37) Alanine Aminotransferase (ALT/SGPT) 81 U/L (16-63) Alkaline Phosphatase 201 U/L (46-116) Ammonia 33 mcmol/L (11-34) Total Protein 7.2 g/dL (6.4-8.2) Albumin 2.6 g/dL (3.4-5.0) Albumin/Globulin Ratio 0.6 (1.0-1.7) Lipase 161 U/L (73-393) Urine Collection Type U cath Urine Color [place] Urine Clarity Clear Urine pH 5.5 Urine Specific [place] 1.020 Urine Protein Negative mg/dL (NEG-TRACE) Urine Glucose (UA) Negative mg/dL (NEG) Urine Ketones (Stick) Negative mg/dL (NEG) Urine Blood Small (NEG) Urine Nitrite Negative (NEG) Urine Bilirubin Large (NEG) Urine Urobilinogen Dipstick 1.0 mg/dL (0.2 mg/dL) Urine Leukocyte Esterase Small (NEG) Urine RBC 1-2 /HPF (0-2) Urine WBC Occ /HPF (0-4) Urine Squamous Epithelial Cells Mod /LPF Urine Bacteria 0 /HPF (0-FEW) Urine Hyaline Casts Few /HPF Urine Granular Casts Occasional /HPF Urine Mucus Marked /LPF Urine Opiates Screen Neg (NEG) Urine Methadone Screen Neg (NEG) Urine Barbiturates Neg (NEG) Urine Phencyclidine Screen Neg (NEG) Urine Amphetamine/Methamphetamine Neg (NEG) Urine Benzodiazepines Screen Neg (NEG) Urine Cocaine Screen Neg (NEG) Urine Cannabinoids Screen Neg (NEG) Urine Ethyl Alcohol Neg (NEG) Direct Bilirubin 20.7 mg/dL (0.0-0.2) Laboratory Tests Test 10/23/18 11:55 10/23/18 12:40 Urine Opiates Screen Neg (NEG) Urine Methadone Screen Neg (NEG) Urine Barbiturates Neg (NEG) Urine Phencyclidine Screen Neg (NEG) Urine Amphetamine/Methamphetamine Neg (NEG) Urine Benzodiazepines Screen Neg (NEG) Urine Cocaine Screen Neg (NEG) Urine Cannabinoids Screen Neg (NEG) Urine Ethyl Alcohol Neg (NEG) Direct Bilirubin 20.7 mg/dL (0.0-0.2) Assessment/Plan Assessment/Plan jaundice t nuvia 20 no gallstones ? underlying liver disease GI following no surgical indications KANDIS JIMENEZ MD 10/24/18 1043: CONSULT Assessment/Plan Assessment/Plan Patient seen and examined. Patient unable to give history due to confusion. Very thin, abd soft, NT CT reviewed T.Bili 25 appears to be more primary liver disease. No surgical indications. Agree with Leia's assessment and plan. AVE IQBAL APRN Oct 24, 2018 08:24 KANDIS JIMENEZ MD Oct 24, 2018 10:43
[2018-10-24 08:46] LABS: BASO # 0.1 x10^3/uL (0.0-0.2); BASO % 1 % (0-3); EOS # 0.1 x10^3/uL (0.0-0.7); EOS % 3 % (0-3); HEMATOCRIT 32.4 % (39.0-53.0); HEMOGLOBIN 11.3 g/dL (13.0-17.5); LYMPH # 3.2 x10^3/uL (1.0-4.8); LYMPH % 63 % (24-48); MEAN CORPUSCULAR HEMOGLOBIN 32 pg (25-35); MEAN CORPUSCULAR HGB CONC 35 g/dL (31-37); MEAN CORPUSCULAR VOLUME 91 fL (79-100); MONO # 0.2 x10^3/uL (0.0-1.1); MONO % 4 % (0-9); NEUT # 1.5 x10^3/uL (1.8-7.7); NEUT % 30 % (31-73); PLATELET COUNT 281 x10^3/uL (140-400); RED BLOOD COUNT 3.57 x10^6/uL (4.30-5.70); RED CELL DISTRIBUTION WIDTH 17.5 % (11.5-14.5); WHITE BLOOD COUNT 5.1 x10^3/uL (4.0-11.0)
[2018-10-24 09:34] LABS: AMYLASE 58 U/L (25-115); LIPASE 162 U/L (73-393)
[2018-10-24 09:49] LABS: ALBUMIN 2.5 g/dL (3.4-5.0); ALBUMIN/GLOBULIN RATIO 0.6 (1.0-1.7); CALCIUM 9.2 mg/dL (8.5-10.1); GFR 88.6; POTASSIUM 3.6 mmol/L (3.5-5.1); TOTAL PROTEIN 6.9 g/dL (6.4-8.2)
[2018-10-24 09:51] LABS: DIRECT BILIRUBIN 21.2 mg/dL (0.0-0.2); TOTAL BILIRUBIN 26.1 mg/dL (0.2-1.0)
--- NOTE | 2018-10-24 10:09 | PDOC ---
PROGRESS NOTES Subjective Subjective oriented to person only, does not remember me Objective Objective Vital Signs Date Time Temp Pulse Resp B/P (MAP) Pulse Ox O2 Delivery O2 Flow Rate FiO2 10/24/18 08:02 62 154/76 10/24/18 08:00 Room Air 10/24/18 07:30 16 100 10/24/18 03:40 97.5 97.5 Intake and Output 10/24/18 06:59 Intake Total 0 ml Balance 0 ml Intake Oral 0 ml # Voids 5 Physical Exam Physical Exam yellow color eyes Abdomen: Soft, No tenderness Heart: Regular rate, Normal S1, Normal S2 Extremities: No clubbing, No cyanosis General: Cooperative, Other (dementia, confusion) HEENT: Atraumatic, Mucous membr. moist/pink, Other (jaundice) Lungs: Clear to auscultation, Normal air movement MUSCULOSKELETAL: No deformity, No swelling Neuro: Normal gait, Normal tone Psych/Mental Status: Mental status NL Skin: No breakdown, No significant lesion Diagnosis Problem List Problems Medical Problems: (1) Altered mental status Status: Acute (2) Failure to thrive Status: Chronic (3) Hypertension Status: Chronic (4) Jaundice Status: Acute (5) Osteoarthritis Status: Chronic (6) Pituitary adenoma Status: Chronic Assessment Assessment Problems Medical Problems: (1) Altered mental status Status: Acute (2) Failure to thrive Status: Chronic (3) Hypertension Status: Chronic (4) Jaundice Status: Acute (5) Osteoarthritis Status: Chronic (6) Pituitary adenoma Status: Chronic FINAL DIAGNOSES: 1. Obstructive jaundice, etiology not clear.? Drug induced Megase. 2. Hypertension. 3. Acute metabolic encephalopathy. 4. Weight loss. 5. A 6 mm nodule in the left lower lung. 6. History of alcohol abuse and marijuana abuse and cocaine abuse. 7. Failure to thrive. 8. History of gastroesophageal reflux disease and peptic ulcer disease. 9. Osteoarthritis 10. History of hyperlipidemia. 11. Chronic pituitary adenoma. PLAN: Ct abd noted, sono abdomen noted. no tumors or obstruction noted. GI soft diet. monitor labs encephalopathy+dementia making it worse. ammonia 33 normal. bilirubin 26. Consult Dr. Ochoa for GI evaluation and management. I will consult Dr. Way for surgical evaluation and management. I will start him on IV fluids D5 half normal saline with KCl 20 mEq at 80 mL per hour. Keep him n.p.o. until the patient is seen by the specialist. The patient was given 1 dose of IV Zosyn yesterday. The patient is otherwise asymptomatic. Zosyn may actually make the liver function worse. I will await the input from the specialist. For details, please refer to the orders. Prognosis of this patient is extremely poor. Plan Plan of Care Problems Medical Problems: (1) Altered mental status Status: Acute (2) Failure to thrive Status: Chronic (3) Hypertension Status: Chronic (4) Jaundice Status: Acute (5) Osteoarthritis Status: Chronic (6) Pituitary adenoma Status: Chronic Comment Review of Relevant I have reviewed the following items elizabeth (where applicable) has been applied. Labs Laboratory Tests Test 10/23/18 11:55 10/23/18 12:40 10/24/18 06:20 10/24/18 08:20 Urine Opiates Screen Neg (NEG) Urine Methadone Screen Neg (NEG) Urine Barbiturates Neg (NEG) Urine Phencyclidine Screen Neg (NEG) Urine Amphetamine/Methamphetamine Neg (NEG) Urine Benzodiazepines Screen Neg (NEG) Urine Cocaine Screen Neg (NEG) Urine Cannabinoids Screen Neg (NEG) Urine Ethyl Alcohol Neg (NEG) Direct Bilirubin 20.7 mg/dL (0.0-0.2) 21.2 mg/dL (0.0-0.2) White Blood Count 5.1 x10^3/uL (4.0-11.0) Red Blood Count 3.57 x10^6/uL (4.30-5.70) Hemoglobin 11.3 g/dL (13.0-17.5) Hematocrit 32.4 % (39.0-53.0) Mean Corpuscular Volume 91 fL (79-100) Mean Corpuscular Hemoglobin 32 pg (25-35) Mean Corpuscular Hemoglobin Concent 35 g/dL (31-37) Red Cell Distribution Width 17.5 % (11.5-14.5) Platelet Count 281 x10^3/uL (140-400) Neutrophils (%) (Auto) 30 % (31-73) Lymphocytes (%) (Auto) 63 % (24-48) Monocytes (%) (Auto) 4 % (0-9) Eosinophils (%) (Auto) 3 % (0-3) Basophils (%) (Auto) 1 % (0-3) Neutrophils # (Auto) 1.5 x10^3/uL (1.8-7.7) Lymphocytes # (Auto) 3.2 x10^3/uL (1.0-4.8) Monocytes # (Auto) 0.2 x10^3/uL (0.0-1.1) Eosinophils # (Auto) 0.1 x10^3/uL (0.0-0.7) Basophils # (Auto) 0.1 x10^3/uL (0.0-0.2) Sodium Level 137 mmol/L (136-145) Potassium Level 3.6 mmol/L (3.5-5.1) Chloride Level 103 mmol/L (98-107) Carbon Dioxide Level 24 mmol/L (21-32) Anion Gap 10 (6-14) Blood Urea Nitrogen 13 mg/dL (8-26) Creatinine 1.0 mg/dL (0.7-1.3) Estimated GFR (Cockcroft-Gault) 88.6 BUN/Creatinine Ratio 13 (6-20) Glucose Level 78 mg/dL (70-99) Calcium Level 9.2 mg/dL (8.5-10.1) Total Bilirubin 26.1 mg/dL (0.2-1.0) Aspartate Amino Transf (AST/SGOT) 80 U/L (15-37) Alanine Aminotransferase (ALT/SGPT) 72 U/L (16-63) Alkaline Phosphatase 203 U/L (46-116) Total Protein 6.9 g/dL (6.4-8.2) Albumin 2.5 g/dL (3.4-5.0) Albumin/Globulin Ratio 0.6 (1.0-1.7) Amylase Level 58 U/L (25-115) Lipase 162 U/L (73-393) Microbiology 10/22/18 Blood Culture - Preliminary, Resulted NO GROWTH AFTER 1 DAY Medications Current Medications Potassium Chloride/Dextrose/ Sod Cl 1,000 ml @ 80 mls/hr [id number] IV Last administered on 10/24/18at 07:55; Start 10/23/18 at 10:30 Vitals/I & O Vital Sign - Last 24 Hours 10/23/18 10/23/18 10/23/18 10/23/18 11:00 12:37 15:00 19:11 Temp 98.2 97.6 97.8 98.2 97.6 97.8 Pulse 63 63 59 66 Resp 16 18 16 B/P (MAP) 146/83 (104) 146/83 139/71 (93) 138/71 (93) Pulse Ox 100 100 100 O2 Delivery Room Air Room Air Room Air 10/23/18 10/23/18 10/24/18 10/24/18 20:10 23:09 03:40 07:30 Temp 97.6 97.5 97.6 97.5 Pulse 68 62 66 Resp 16 20 16 B/P (MAP) 104/71 (82) 154/76 (102) 134/69 (90) Pulse Ox 100 99 100 O2 Delivery Room Air Room Air Room Air Room Air 10/24/18 10/24/18 08:00 08:02 Pulse 62 B/P (MAP) 154/76 O2 Delivery Room Air Intake and Output 10/23/18 10/23/18 10/24/18 14:59 22:59 06:59 Intake Total 0 ml 0 ml Balance 0 ml 0 ml CLAUDIA GAO MD Oct 24, 2018 10:09
--- NOTE | 2018-10-24 10:15 | PDOC ---
Subjective: Subjective: Denies pain. Objective: Objective: Per staff - hasn't eaten breakfast yet because he was NPO - tray just delivered. Vital Signs: Vital Signs Date Time Temp Pulse Resp B/P (MAP) Pulse Ox O2 Delivery O2 Flow Rate FiO2 10/24/18 08:02 62 154/76 10/24/18 08:00 Room Air 10/24/18 07:30 16 100 10/24/18 03:40 97.5 97.5 Labs: Laboratory Tests Test 10/23/18 11:55 10/23/18 12:40 10/24/18 06:20 10/24/18 08:20 Urine Opiates Screen Neg Urine Methadone Screen Neg Urine Barbiturates Neg Urine Phencyclidine Screen Neg Urine Amphetamine/Methamphetamine Neg Urine Benzodiazepines Screen Neg Urine Cocaine Screen Neg Urine Cannabinoids Screen Neg Urine Ethyl Alcohol Neg Direct Bilirubin 20.7 mg/dL 21.2 mg/dL White Blood Count 5.1 x10^3/uL Red Blood Count 3.57 x10^6/uL Hemoglobin 11.3 g/dL Hematocrit 32.4 % Mean Corpuscular Volume 91 fL Mean Corpuscular Hemoglobin 32 pg Mean Corpuscular Hemoglobin Concent 35 g/dL Red Cell Distribution Width 17.5 % Platelet Count 281 x10^3/uL Neutrophils (%) (Auto) 30 % Lymphocytes (%) (Auto) 63 % Monocytes (%) (Auto) 4 % Eosinophils (%) (Auto) 3 % Basophils (%) (Auto) 1 % Neutrophils # (Auto) 1.5 x10^3/uL Lymphocytes # (Auto) 3.2 x10^3/uL Monocytes # (Auto) 0.2 x10^3/uL Eosinophils # (Auto) 0.1 x10^3/uL Basophils # (Auto) 0.1 x10^3/uL Platelet Estimate Pending Sodium Level 137 mmol/L Potassium Level 3.6 mmol/L Chloride Level 103 mmol/L Carbon Dioxide Level 24 mmol/L Anion Gap 10 Blood Urea Nitrogen 13 mg/dL Creatinine 1.0 mg/dL Estimated GFR (Cockcroft-Gault) 88.6 BUN/Creatinine Ratio 13 Glucose Level 78 mg/dL Calcium Level 9.2 mg/dL Total Bilirubin 26.1 mg/dL Aspartate Amino Transf (AST/SGOT) 80 U/L Alanine Aminotransferase (ALT/SGPT) 72 U/L Alkaline Phosphatase 203 U/L Total Protein 6.9 g/dL Albumin 2.5 g/dL Albumin/Globulin Ratio 0.6 Amylase Level 58 U/L Lipase 162 U/L BLOOD CULTURE Preliminary NO GROWTH AFTER 1 DAY Imaging: Abd US IMPRESSION: Mild gallbladder wall thickening. No gallstones evident. This is a nonspecific finding, can be observed with cholecystitis although no inflammatory causes of thickening such as right-sided congestive heart failure, hypoalbumi nemia or liver disease are also possibilities. CBD 4mm. CT A/P IMPRESSION: 1. Hypervascular thickened wall enhancement of the gallbladder raising suspicion of cholecystitis. 2. The appendix is negative. 3. 6 mm pulmonary nodule left lower lobe. PE: GEN: NAD - was asleep w/ 1:1 obs LUNGS: room air ABD: S/ND/NT NEURO/PSYCH: nods/shakes head A/P: Jaundice - ?drug-induced - bili 26, imaging unremarkable Heavy alcohol use in the past -- Megace held, tox screen negative, Hepatitis panel pending. Resume acid-dipper and drier for h/o GERD. BETTYE ZAPIEN Oct 24, 2018 10:15
[2018-10-24 11:00] VITALS: BP 106/69
[2018-10-24] MEDS: PANTOPRAZOLE 40 MG TABLET.DR. PO SCH (11:40)
--- NOTE | 2018-10-24 14:29 | NUR ---
SW following pt for dc planning. Chart reviewed. Pt lives at home with family. PT/OT ordered and pending. SW will await for PT/OT recommendation to assess skilled needs. Pt is currently 1:1. Will continue to follow pending dc needs.
[2018-10-24 14:36] LABS: % EOS 3 % (0-5); % LYMPHS 52 % (24-48); % MONOS 2 % (0-10); % SEGS 43 % (35-66); ANISOCYTOSIS SLIGHT; PLT ESTIMATE ADEQUATE (ADEQUATE)
[2018-10-24 14:41] LABS: TARGET CELLS FEW
[2018-10-24 15:00] VITALS: BP 115/63
[2018-10-24 19:00] VITALS: BP 117/65
[2018-10-24 23:00] VITALS: BP 146/86
[2018-10-25 03:00] VITALS: BP 136/72
[2018-10-25] MEDS: PANTOPRAZOLE 40 MG TABLET.DR. PO SCH (06:59)
[2018-10-25] MEDS: amLODIPine BESYLATE 5 MG TABLET PO SCH (07:00)
[2018-10-25 07:02] VITALS: BP 134/61
[2018-10-25] MEDS: POTASSIUM CL 20MEQ D5-0.45NACL 1,000 ML IV SCH (08:09)
[2018-10-25 08:43] LABS: DIRECT BILIRUBIN 15.8 mg/dL (0.0-0.2); TOTAL BILIRUBIN 20.5 mg/dL (0.2-1.0); TOTAL PROTEIN 5.6 g/dL (6.4-8.2)
--- NOTE | 2018-10-25 10:03 | PDOC ---
PROGRESS NOTES Subjective Subjective eating better today Objective Objective Vital Signs Date Time Temp Pulse Resp B/P (MAP) Pulse Ox O2 Delivery O2 Flow Rate FiO2 10/25/18 08:00 Room Air 10/25/18 07:02 98.0 67 18 134/61 (85) 99 98.0 Intake and Output 10/25/18 06:59 Intake Total 1591 ml Output Total 600 ml Balance 991 ml Intake Oral 591 ml IV Total 1000 ml Output Urine Total 600 ml # Voids 6 # Bowel Movements 1 Physical Exam Physical Exam yellow color eyes Abdomen: Soft, No tenderness Heart: Regular rate, Normal S1, Normal S2 Extremities: No clubbing, No cyanosis General: Cooperative, Other (dementia, confusion) HEENT: Atraumatic, Mucous membr. moist/pink, Other (jaundice) Lungs: Clear to auscultation, Normal air movement MUSCULOSKELETAL: No deformity, No swelling Neuro: Normal gait, Normal tone Psych/Mental Status: Mental status NL Skin: No breakdown, No significant lesion Diagnosis Problem List Problems Medical Problems: (1) Altered mental status Status: Acute (2) Failure to thrive Status: Chronic (3) Hypertension Status: Chronic (4) Jaundice Status: Acute (5) Osteoarthritis Status: Chronic (6) Pituitary adenoma Status: Chronic Assessment Assessment Problems Medical Problems: (1) Altered mental status Status: Acute (2) Failure to thrive Status: Chronic (3) Hypertension Status: Chronic (4) Jaundice Status: Acute (5) Osteoarthritis Status: Chronic (6) Pituitary adenoma Status: Chronic FINAL DIAGNOSES: 1. Obstructive jaundice, etiology not clear.? Drug induced Megase. 2. Hypertension. 3. Acute metabolic encephalopathy. 4. Weight loss. 5. A 6 mm nodule in the left lower lung. 6. History of alcohol abuse and marijuana abuse and cocaine abuse. 7. Failure to thrive. 8. History of gastroesophageal reflux disease and peptic ulcer disease. 9. Osteoarthritis 10. History of hyperlipidemia. 11. Chronic pituitary adenoma. PLAN: d/c 1;1 bilirubin trending down 20 down from 25. spoke with pts daughter. SNU screen. Ct abd noted, sono abdomen noted. no tumors noted. GI soft diet. monitor labs encephalopathy+dementia making it worse. ammonia 33 normal. spoke with GI Consult Dr. Ochoa for GI evaluation and management. I will consult Dr. Way for surgical evaluation and management. I will start him on IV fluids D5 half normal saline with KCl 20 mEq at 80 mL per hour. Keep him n.p.o. until the patient is seen by the specialist. The patient was given 1 dose of IV Zosyn yesterday. The patient is otherwise asymptomatic. Zosyn may actually make the liver function worse. I will await the input from the specialist. For details, please refer to the orders. Prognosis of this patient is extremely poor. Plan Plan of Care Problems Medical Problems: (1) Altered mental status Status: Acute (2) Failure to thrive Status: Chronic (3) Hypertension Status: Chronic (4) Jaundice Status: Acute (5) Osteoarthritis Status: Chronic (6) Pituitary adenoma Status: Chronic Comment Review of Relevant I have reviewed the following items elizabeth (where applicable) has been applied. Labs Laboratory Tests Test 10/25/18 08:00 Total Bilirubin 20.5 mg/dL (0.2-1.0) Direct Bilirubin 15.8 mg/dL (0.0-0.2) Aspartate Amino Transf (AST/SGOT) 65 U/L (15-37) Alanine Aminotransferase (ALT/SGPT) 55 U/L (16-63) Alkaline Phosphatase 168 U/L (46-116) Total Protein 5.6 g/dL (6.4-8.2) Albumin 2.0 g/dL (3.4-5.0) Microbiology 10/23/18 Blood Culture - Preliminary, Resulted NO GROWTH AFTER 1 DAY Medications Current Medications Pantoprazole Sodium (Protonix) 40 mg DAILYAC PO Last administered on 10/25/18at 07:00; Start 10/24/18 at 11:30 Vitals/I & O Vital Sign - Last 24 Hours 10/24/18 10/24/18 10/24/18 10/24/18 11:00 15:00 19:00 19:05 Temp 97.4 97.4 Pulse 66 60 60 Resp 16 16 16 B/P (MAP) 106/69 (81) 115/63 (80) 117/65 (82) Pulse Ox 97 100 99 O2 Delivery Room Air Room Air Room Air Room Air 10/24/18 10/25/18 10/25/18 10/25/18 23:00 03:00 07:00 07:02 Temp 98.0 97.9 98.0 98.0 97.9 98.0 Pulse 67 57 67 67 Resp 16 17 18 B/P (MAP) 146/86 (106) 136/72 (93) 134/61 134/61 (85) Pulse Ox 100 99 99 O2 Delivery Room Air Room Air Room Air 10/25/18 08:00 O2 Delivery Room Air Intake and Output 10/24/18 10/24/18 10/25/18 14:59 22:59 06:59 Intake Total 1000 ml 591 ml Output Total 600 ml Balance 1000 ml -9 ml Nutrition Consultation Dietary Evaluation: Recommendations by RD: Increase Calorie Intake, Protein supplementation Comments: ensure bid Expected Outcomes/Goals: to meet > 75% est nutr needs Interpretation of weight loss: >7.5% in 3 months Malnutrition Findings: Food and Nutrition Intake (Sev: <50% est energy req 5days Body Fat Depletion (Non Severe: Mod to Severe Weight Status: Underweight CLAUDIA GAO MD Oct 25, 2018 10:03
[2018-10-25 10:37] VITALS: BP 106/62
--- NOTE | 2018-10-25 11:30 | PDOC ---
Subjective: Subjective: Tells me has pain w/ urination. Nurse present - has not complained of this before - does get up every 1.5 hrs to urinate. Tolerating PO, ?DC today. Objective: Vital Signs: Vital Signs Date Time Temp Pulse Resp B/P (MAP) Pulse Ox O2 Delivery O2 Flow Rate FiO2 10/25/18 10:37 97.4 60 20 106/62 (77) 100 Room Air 97.4 Labs: Laboratory Tests Test 10/25/18 08:00 Total Bilirubin 20.5 mg/dL Direct Bilirubin 15.8 mg/dL Aspartate Amino Transf (AST/SGOT) 65 U/L Alanine Aminotransferase (ALT/SGPT) 55 U/L Alkaline Phosphatase 168 U/L Total Protein 5.6 g/dL Albumin 2.0 g/dL PE: GEN: NAD - up to chair HEENT: +sclerae icteric ABD: S/ND/NT SKIN: +jaundice NEURO/PSYCH: more alert than yesterday A/P: Jaundice - bili impressive but improved from 26 to 20 off Megace Hep C Ab + - PCR pending -- DC per primary - follow-up re: PCR. BETTYE ZAPIEN Oct 25, 2018 11:30
[2018-10-25 15:00] VITALS: BP 127/75
--- NOTE | 2018-10-25 16:20 | NUR ---
JESS consulted for SNU eval at [facility]. PT/OT recommends home health. Pt had walked 500ft today. Upon chart review- no residential (wound care or long-term IV abx) need is indicated. JESS spoke with pt's daughter, Alanna and explained SNU eval process and pt does not meet criteria for SNU placement. Pt's daughter reports she is a mental health social worker in a NH and is not ready for LTC placement at this time. Pt's daughter verbalized understanding and reported she will make arrangements to take him home tomorrow. Pt's daughter declined home health. D/w RN and PT Christine.
[2018-10-25 19:00] VITALS: BP 143/76
--- NOTE | 2018-10-25 19:59 | NUR ---
Transfer note: received report from PATO Hoffman. Pt transported to room 569 then moved to 580 due to impulsiveness. Pt oriented to room, call light, routines. Pt shows no sign of remembering what is discussed. Will assume care and continue to monitor.
[2018-10-25 23:05] VITALS: BP 116/80
[2018-10-26 02:05] VITALS: BP 105/65
[2018-10-26 05:48] LABS: ALBUMIN 2.2 g/dL (3.4-5.0); TOTAL BILIRUBIN 23.4 mg/dL (0.2-1.0); TOTAL PROTEIN 6.4 g/dL (6.4-8.2)
[2018-10-26 05:50] LABS: DIRECT BILIRUBIN 19.1 mg/dL (0.0-0.2)
[2018-10-26 07:38] VITALS: BP 106/63
[2018-10-26 08:49] VITALS: BP 106/63
[2018-10-26] MEDS: amLODIPine BESYLATE 5 MG TABLET PO SCH (08:49)
[2018-10-26] MEDS: PANTOPRAZOLE 40 MG TABLET.DR. PO SCH (08:49)
[2018-10-26] MEDS ORDERED: PANT40TA77 PO ×2 (10:10→10:11)
--- NOTE | 2018-10-26 10:37 | PDOC ---
PROGRESS NOTES Subjective Subjective feels ok Objective Objective Vital Signs Date Time Temp Pulse Resp B/P (MAP) Pulse Ox O2 Delivery O2 Flow Rate FiO2 10/26/18 08:49 61 106/63 10/26/18 07:38 98.7 18 100 Room Air 98.7 Intake and Output 10/26/18 07:00 Intake Total 1250 ml Output Total 601 ml Balance 649 ml Intake Oral 1250 ml Output Urine Total 600 ml Stool Total 1 ml # Voids 5 # Bowel Movements 1 Physical Exam Physical Exam yellow color eyes Abdomen: Soft, No tenderness Heart: Regular rate, Normal S1, Normal S2 Extremities: No clubbing, No cyanosis General: Cooperative, Other (dementia, confusion) HEENT: Atraumatic, Mucous membr. moist/pink, Other (jaundice) Lungs: Clear to auscultation, Normal air movement MUSCULOSKELETAL: No deformity, No swelling Neuro: Normal gait, Normal tone Psych/Mental Status: Mental status NL Skin: No breakdown, No significant lesion Diagnosis Problem List Problems Medical Problems: (1) Altered mental status Status: Acute (2) Failure to thrive Status: Chronic (3) Hypertension Status: Chronic (4) Jaundice Status: Acute (5) Osteoarthritis Status: Chronic (6) Pituitary adenoma Status: Chronic Assessment Assessment Problems Medical Problems: (1) Altered mental status Status: Acute (2) Failure to thrive Status: Chronic (3) Hypertension Status: Chronic (4) Jaundice Status: Acute (5) Osteoarthritis Status: Chronic (6) Pituitary adenoma Status: Chronic FINAL DIAGNOSES: 1. Obstructive jaundice, etiology not clear.? Drug induced Megase. 2. Hypertension. 3. Acute metabolic encephalopathy. 4. Weight loss. 5. A 6 mm nodule in the left lower lung. 6. History of alcohol abuse and marijuana abuse and cocaine abuse. 7. Failure to thrive. 8. History of gastroesophageal reflux disease and peptic ulcer disease. 9. Osteoarthritis 10. History of hyperlipidemia. 11. Chronic pituitary adenoma. PLAN: d/c home today, do not qualify for SNU bilirubin fluctuating 25 today. spoke with anh bertrand. 6 mm lung nodule ,repeat in [address] abd noted, sono abdomen noted. no tumors noted. GI soft diet. monitor labs encephalopathy+dementia making it worse. ammonia 33 normal. spoke with GI Plan Plan of Care Problems Medical Problems: (1) Altered mental status Status: Acute (2) Failure to thrive Status: Chronic (3) Hypertension Status: Chronic (4) Jaundice Status: Acute (5) Osteoarthritis Status: Chronic (6) Pituitary adenoma Status: Chronic Comment Review of Relevant I have reviewed the following items elizabeth (where applicable) has been applied. Labs Laboratory Tests Test 10/26/18 04:50 Total Bilirubin 23.4 mg/dL (0.2-1.0) Direct Bilirubin 19.1 mg/dL (0.0-0.2) Aspartate Amino Transf (AST/SGOT) 70 U/L (15-37) Alanine Aminotransferase (ALT/SGPT) 65 U/L (16-63) Alkaline Phosphatase 193 U/L (46-116) Total Protein 6.4 g/dL (6.4-8.2) Albumin 2.2 g/dL (3.4-5.0) Microbiology 10/23/18 Blood Culture - Preliminary, Resulted NO GROWTH AFTER 2 DAYS 10/22/18 Urine Culture - Final, Complete 10/22/18 Urine Culture Result 1 (ORAL) - Final, Complete Vitals/I & O Vital Sign - Last 24 Hours 10/25/18 10/25/18 10/25/18 10/25/18 10:37 15:00 19:00 20:00 Temp 97.4 97.6 98.8 97.4 97.6 98.8 Pulse 60 62 65 Resp 20 16 18 B/P (MAP) 106/62 (77) 127/75 (92) 143/76 (98) Pulse Ox 100 100 100 O2 Delivery Room Air Room Air Room Air Room Air 10/25/18 10/26/18 10/26/18 10/26/18 23:05 02:05 07:38 08:49 Temp 99.5 97.3 98.7 99.5 97.3 98.7 Pulse 64 61 61 61 Resp 18 18 B/P (MAP) 116/80 (92) 105/65 (78) 106/63 (77) 106/63 Pulse Ox 99 100 O2 Delivery Room Air Room Air Room Air Intake and Output 10/25/18 10/25/18 10/26/18 15:00 23:00 07:00 Intake Total 850 ml 200 ml 200 ml Output Total 600 ml 1 ml Balance 250 ml 200 ml 199 ml Nutrition Consultation Dietary Evaluation: Recommendations by RD: Increase Calorie Intake, Protein supplementation Comments: ensure bid Expected Outcomes/Goals: to meet > 75% est nutr needs Interpretation of weight loss: >7.5% in 3 months Malnutrition Findings: Food and Nutrition Intake (Sev: <50% est energy req 5days Body Fat Depletion (Non Severe: Mod to Severe Weight Status: Underweight CLAUDIA GAO MD Oct 26, 2018 10:37
[2018-10-26 11:14] LABS: HCV ULTRA QUANT PCR 127000 IU/mL (.)
--- NOTE | 2018-10-26 11:38 | PDOC ---
G I PROGRESS NOTE Subjective Out of room. Not seen. Physical Exam No PE. Review of Relevant I have reviewed the following items elizabeth (where applicable) has been applied. Labs Laboratory Tests Test 10/25/18 08:00 10/26/18 04:50 Total Bilirubin 20.5 mg/dL (0.2-1.0) 23.4 mg/dL (0.2-1.0) Direct Bilirubin 15.8 mg/dL (0.0-0.2) 19.1 mg/dL (0.0-0.2) Aspartate Amino Transf (AST/SGOT) 65 U/L (15-37) 70 U/L (15-37) Alanine Aminotransferase (ALT/SGPT) 55 U/L (16-63) 65 U/L (16-63) Alkaline Phosphatase 168 U/L (46-116) 193 U/L (46-116) Total Protein 5.6 g/dL (6.4-8.2) 6.4 g/dL (6.4-8.2) Albumin 2.0 g/dL (3.4-5.0) 2.2 g/dL (3.4-5.0) Laboratory Tests Test 10/26/18 04:50 Total Bilirubin 23.4 mg/dL (0.2-1.0) Direct Bilirubin 19.1 mg/dL (0.0-0.2) Aspartate Amino Transf (AST/SGOT) 70 U/L (15-37) Alanine Aminotransferase (ALT/SGPT) 65 U/L (16-63) Alkaline Phosphatase 193 U/L (46-116) Total Protein 6.4 g/dL (6.4-8.2) Albumin 2.2 g/dL (3.4-5.0) Microbiology 10/23/18 Blood Culture - Preliminary, Resulted NO GROWTH AFTER 2 DAYS 10/22/18 Urine Culture - Final, Complete 10/22/18 Urine Culture Result 1 (ORAL) - Final, Complete Vitals/I & O Vital Sign - Last 24 Hours 10/25/18 10/25/18 10/25/18 10/25/18 15:00 19:00 20:00 23:05 Temp 97.6 98.8 99.5 97.6 98.8 99.5 Pulse 62 65 64 Resp 16 18 18 B/P (MAP) 127/75 (92) 143/76 (98) 116/80 (92) Pulse Ox 100 100 O2 Delivery Room Air Room Air Room Air Room Air 10/26/18 10/26/18 10/26/18 02:05 07:38 08:49 Temp 97.3 98.7 97.3 98.7 Pulse 61 61 61 Resp 18 B/P (MAP) 105/65 (78) 106/63 (77) 106/63 Pulse Ox 99 100 O2 Delivery Room Air Room Air Intake and Output 10/25/18 10/25/18 10/26/18 14:59 22:59 06:59 Intake Total 850 ml 200 ml 200 ml Output Total 600 ml 1 ml Balance 250 ml 200 ml 199 ml Problem List Problems Medical Problems: (1) Altered mental status Status: Acute (2) Failure to thrive Status: Chronic (3) Hypertension Status: Chronic (4) Jaundice Status: Acute (5) Osteoarthritis Status: Chronic (6) Pituitary adenoma Status: Chronic Assessment Cholestasis, suspect Megace. Positive HCV antibody, PCR pending. Plan of Care: Continue current Tx, Mgmt EHSAN CLEMENS MD Oct 26, 2018 11:38
== END 2018-10-26 10:32 | disposition home or self-care (01) | DRG 444 ==
LOC: ER 20:59 → 6 SOUTH 23:56 → 5 SOUTH 10-25 16:49
PROVIDERS: ADMIT Internal Medicine; ATTEND Internal Medicine
DX: K83.1 Obstruction of bile duct (principal); G93.41 Metabolic encephalopathy; R64 Cachexia; Z68.1 Body mass index [BMI] 19.9 or less, adult; R62.7 Adult failure to thrive; D35.2 Benign neoplasm of pituitary gland; E78.00 Pure hypercholesterolemia, unspecified; E78.5 Hyperlipidemia, unspecified; F03.90 Unspecified dementia, unspecified severity, without behavioral disturbance, psychotic disturbance, mood disturbance, and anxiety; F10.10 Alcohol abuse, uncomplicated; I11.0 Hypertensive heart disease with heart failure; K21.9 Gastro-esophageal reflux disease without esophagitis; M19.90 Unspecified osteoarthritis, unspecified site; N40.0 Benign prostatic hyperplasia without lower urinary tract symptoms; Z80.9 Family history of malignant neoplasm, unspecified; Z87.11 Personal history of peptic ulcer disease; F12.10 Cannabis abuse, uncomplicated; F14.10 Cocaine abuse, uncomplicated; Z90.49 Acquired absence of other specified parts of digestive tract; E88.09 Other disorders of plasma-protein metabolism, not elsewhere classified
CPT/HCPCS: 36415; 70450; 71045; 74177; 76705; 80053; 80076; 80307; 81001; 82140; 82150; 82248; 83605; 83690; 85007; 85025; 86705; 86709; 86803; 87040; 87086; 87340; 87521; 93005; 96361; 96365; J2543; J7030; Q9967; 97530; 97535; 99285-25; G0378

== ENCOUNTER 2018-12-03 15:07 | Emergency (ER) | payer MEDICARE, OTHER ==
[~2018-12-03] VITALS: Ht 160 cm; Wt 50.8 kg
[~2018-12-03 15:07] MED LIST changes: +PANT40TA77 PO
[2018-12-03 15:30] VITALS: BP 134/64
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
[2018-12-03 15:54] LABS: BASO # 0.1 x10^3/uL (0.0-0.2); BASO % 1 % (0-3); EOS # 0.4 x10^3/uL (0.0-0.7); EOS % 6 % (0-3); HEMATOCRIT 29.2 % (39.0-53.0); HEMOGLOBIN 9.8 g/dL (13.0-17.5); LYMPH % 42 % (24-48); MEAN CORPUSCULAR HEMOGLOBIN 33 pg (25-35); MEAN CORPUSCULAR HGB CONC 33 g/dL (31-37); MEAN CORPUSCULAR VOLUME 100 fL (79-100); MONO # 0.6 x10^3/uL (0.0-1.1); MONO % 9 % (0-9); NEUT % 42 % (31-73); PLATELET COUNT 206 x10^3/uL (140-400); RED BLOOD COUNT 2.94 x10^6/uL (4.30-5.70); RED CELL DISTRIBUTION WIDTH 14.7 % (11.5-14.5); WHITE BLOOD COUNT 7.1 x10^3/uL (4.0-11.0)
[2018-12-03 16:01] LABS: CALCIUM 8.4 mg/dL (8.5-10.1); CREATININE 1.1 mg/dL (0.7-1.3); GFR 79.4; POTASSIUM 3.5 mmol/L (3.5-5.1)
[2018-12-03 16:08] LABS: ALBUMIN 2.6 g/dL (3.4-5.0); ALBUMIN/GLOBULIN RATIO 0.6 (1.0-1.7); TOTAL BILIRUBIN 4.7 mg/dL (0.2-1.0); TOTAL PROTEIN 6.7 g/dL (6.4-8.2)
[2018-12-03] MEDS ORDERED: QUEtiapine 25 MG TABLET. PO SCH (17:00)
[2018-12-03] MEDS ORDERED: QUET25TA5 PO (17:01)
== END 2018-12-03 17:41 | disposition home or self-care (01) ==
LOC: ER 15:07
DX: F03.91 Unspecified dementia, unspecified severity, with behavioral disturbance (principal); R41.82 Altered mental status, unspecified; K21.9 Gastro-esophageal reflux disease without esophagitis; E78.00 Pure hypercholesterolemia, unspecified; I10 Essential (primary) hypertension; R41.841 Cognitive communication deficit
CPT/HCPCS: 36415; 80053; 82140; 83605; 85025; 99284

== ENCOUNTER 2019-07-12 01:25 | Emergency (ER) | payer MEDICARE, OTHER ==
[~2019-07-12] VITALS: Ht 172.7 cm; Wt 68.0 kg
[~2019-07-12 01:25] MED LIST changes: -MEGE40TA PO; +MEGE40TA3 PO; +MELA3TAB4 PO; -MELA3TAB56 PO; +QUET25TA5 PO
[2019-07-12 01:53] LABS: BASO % 1 % (0-3); EOS # 0.2 x10^3/uL (0.0-0.7); EOS % 4 % (0-3); HEMATOCRIT 39.2 % (39.0-53.0); HEMOGLOBIN 13.3 g/dL (13.0-17.5); LYMPH # 2.9 x10^3/uL (1.0-4.8); LYMPH % 53 % (24-48); MEAN CORPUSCULAR HEMOGLOBIN 33 pg (25-35); MEAN CORPUSCULAR HGB CONC 34 g/dL (31-37); MEAN CORPUSCULAR VOLUME 96 fL (79-100); MONO # 0.3 x10^3/uL (0.0-1.1); MONO % 6 % (0-9); NEUT # 1.9 x10^3/uL (1.8-7.7); NEUT % 36 % (31-73); PLATELET COUNT 190 x10^3/uL (140-400); RED BLOOD COUNT 4.09 x10^6/uL (4.30-5.70); RED CELL DISTRIBUTION WIDTH 13.2 % (11.5-14.5); WHITE BLOOD COUNT 5.4 x10^3/uL (4.0-11.0)
[2019-07-12 02:02] LABS: CALCIUM 9.1 mg/dL (8.5-10.1); CREATININE 1.3 mg/dL (0.7-1.3); GFR 65.3; POTASSIUM 4.3 mmol/L (3.5-5.1)
[2019-07-12 02:06] LABS: ALBUMIN 3.3 g/dL (3.4-5.0); ALBUMIN/GLOBULIN RATIO 0.7 (1.0-1.7); MAGNESIUM 1.8 mg/dL (1.8-2.4); TOTAL BILIRUBIN 1.4 mg/dL (0.2-1.0); TOTAL PROTEIN 7.9 g/dL (6.4-8.2)
[2019-07-12 02:13] LABS: BILIRUBIN,URINE NEGATIVE (NEG); CLARITY,URINE CLEAR; COLOR,URINE AMBER; NITRITE,URINE NEGATIVE (NEG); PH,URINE 5.5 (<5.0-8.0); PROTEIN,URINE NEGATIVE (NEG-TRACE)
[2019-07-12 02:23] LABS: SQUAMOUS EPITHELIAL CELL,UR MOD /LPF
[2019-07-12 02:25] LABS: BACTERIA,URINE 0 /HPF (0-FEW)
--- NOTE | 2019-07-12 02:32 | RAD ---
EXAM: CT Head without IV contrast CLINICAL HISTORY: Altered mental status COMPARISON: 10/22/2018 TECHNIQUE: Routine CT of the head without contrast. Soft tissues and bone windows were reviewed. PQRS compliance statement - One or more of the following individualized dose reduction techniques were utilized for this study: 1. Automated exposure control 2. Adjustment of the mA and/or kV according to patient size 3. Use of iterative reconstruction technique FINDINGS: There is no evidence of hemorrhage or extra-axial fluid collection. Right suprasellar mass stable. Fenton-white differentiation is maintained with no evidence of edema. Subcortical, periventricular and deep matter hypoattenuation likely changes of chronic small vessel disease. There is no mass effect or shift of the intracranial structures. The ventricles, basilar cisterns and cortical sulci are normal in size and configuration for the patients stated age. The cerebellum and brainstem are unremarkable. The calvarium demonstrates no evidence of fracture or focal lesion. There is normal aeration of the visualized paranasal sinuses and mastoid air cells. The visualized portions of the orbits are normal. IMPRESSION: 1. No evidence for acute intracranial process. 2. White matter changes likely chronic small vessel disease. 3. 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 Electronically signed by: Lasha Muse MD (07/12/2019 2:29 AM) [facility]
--- NOTE | 2019-07-12 03:01 | RAD ---
EXAM: AP View of the chest DATE: 07/12/2019 1:31 AM INDICATION: Reason: AMS / Spl. Instructions: / History: COMPARISON: 10/22/2018, 08/17/2018 FINDINGS: The heart is not enlarged. Mediastinal and hilar contours are normal. No lobar consolidation. Mild background of interstitial prominence and bronchovascular crowding, grossly unchanged to 10/22/2018. No pleural effusion or pneumothorax. IMPRESSION: Chronic appearing interstitial opacities, grossly unchanged to 10/22/2018. Electronically signed by: Lasha Muse MD (07/12/2019 2:58 AM) [facility]
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
[2019-07-12 05:13] VITALS: BP 151/105
--- NOTE | 2019-07-12 05:59 | EKG ---
[facility] [address] [place] [address] Test Date: 2019-07-12 Test Time: 01:45:35 Pat Name: ROSANNA PATEL Department: Room: Gender: M Curatorial Specialist: : 1945 Requested By: REBECCA WILKES Order Number: [id number] Reading MD: Ramin Chacon MD Measurements Intervals [place] Rate: 69 P: 38 MS: 184 QRS: -10 QRSD: 78 T: 2 QT: 414 QTc: 445 Interpretive Statements SINUS RHYTHM Electronically Signed On 07-14-2019 13:26:22 CDT by Ramin Chacon MD
== END 2019-07-12 05:16 | disposition home or self-care (01) ==
LOC: ER 01:25
DX: R41.82 Altered mental status, unspecified (principal); F03.90 Unspecified dementia, unspecified severity, without behavioral disturbance, psychotic disturbance, mood disturbance, and anxiety; K21.9 Gastro-esophageal reflux disease without esophagitis; E78.00 Pure hypercholesterolemia, unspecified; I10 Essential (primary) hypertension; R41.841 Cognitive communication deficit; Z87.891 Personal history of nicotine dependence
CPT/HCPCS: 36415; 70450; 71045; 80053; 81001; 82140; 83735; 84484; 85025; 87086; 93005; 99285; P9612

== ENCOUNTER 2019-09-14 10:58 | Inpatient (IN) | payer MEDICARE, OTHER ==
[~2019-09-14] VITALS: Ht 180.3 cm; Wt 54.5 kg
[2019-09-14 11:39] LABS: CALCIUM 9.2 mg/dL (8.5-10.1); CREATININE 1.2 mg/dL (0.7-1.3); GFR 71.6; POTASSIUM 4.6 mmol/L (3.5-5.1)
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
[2019-09-14 11:42] LABS: BILIRUBIN,URINE NEGATIVE (NEG); CLARITY,URINE CLEAR; COLOR,URINE AMBER; NITRITE,URINE NEGATIVE (NEG); PROTEIN,URINE 30 mg/dL (NEG-TRACE)
[2019-09-14 11:42] LABS: BASO % 1 % (0-3); EOS # 0.1 x10^3/uL (0.0-0.7); EOS % 2 % (0-3); HEMATOCRIT 39.4 % (39.0-53.0); HEMOGLOBIN 13.3 g/dL (13.0-17.5); LYMPH # 2.3 x10^3/uL (1.0-4.8); LYMPH % 45 % (24-48); MEAN CORPUSCULAR HEMOGLOBIN 32 pg (25-35); MEAN CORPUSCULAR HGB CONC 34 g/dL (31-37); MEAN CORPUSCULAR VOLUME 95 fL (79-100); MONO # 0.6 x10^3/uL (0.0-1.1); MONO % 13 % (0-9); NEUT # 2.1 x10^3/uL (1.8-7.7); NEUT % 40 % (31-73); PLATELET COUNT 150 x10^3/uL (140-400); RED BLOOD COUNT 4.16 x10^6/uL (4.30-5.70); RED CELL DISTRIBUTION WIDTH 12.7 % (11.5-14.5); WHITE BLOOD COUNT 5.2 x10^3/uL (4.0-11.0)
[2019-09-14 11:45] LABS: ALBUMIN 3.2 g/dL (3.4-5.0); ALBUMIN/GLOBULIN RATIO 0.7 (1.0-1.7); TOTAL BILIRUBIN 1.4 mg/dL (0.2-1.0); TOTAL PROTEIN 7.9 g/dL (6.4-8.2)
[2019-09-14 11:57] LABS: SQUAMOUS EPITHELIAL CELL,UR MOD /LPF
[2019-09-14 11:58] LABS: BACTERIA,URINE MANY /HPF (0-FEW); RBC,URINE >40 /HPF (0-2)
--- NOTE | 2019-09-14 12:38 | RAD ---
CHEST AP ONLY History: Altered mental status Comparison: July 12, 2019 Findings: Single view of the chest is submitted. Heart size is considered within normal limits. There is atherosclerotic calcification near aortic arch. There is interstitial opacity at the lung bases bilaterally although fairly similar. There is no new lobar consolidation, dependent pleural fluid, or pneumothorax. Impression: 1. No acute radiographic abnormality is identified. Electronically signed by: Merlin Lawson MD (09/14/2019 12:35 PM) [id number]
--- NOTE | 2019-09-14 12:49 | RAD ---
CT HEAD WO CONTRAST Date: 09/14/2019 11:04 AM Clinical Indication: Reason: AMS / Spl. Instructions: / History: Comparison: CT 07/12/2019. MRI 09/23/2015 Technique: 5 mm axial tomographic images were obtained of the head without contrast. These were viewed on brain and bone windows. One or more of the following dose reduction techniques were utilized: Automated exposure control (AEC), Adjustment of mA and/or kV according to patient size, Use of iterative reconstruction technique such as ASiR, CT scan done according to ALARA and image gently/image wisely Findings: Mild generalized cerebral and cerebellar volume loss. Moderate nonspecific periventricular hypoattenuation, most commonly seen with chronic small vessel ischemic disease. Calcified atherosclerosis of the bilateral cavernous and paraclinoid internal carotid arteries and intracranial vertebral arteries. Stable sellar/suprasellar mass. No acute hemorrhage. The ventricles are normal in size, shape, and morphology. The raymond-white matter junction is normal. The subarachnoid cisterns are patent. The visualized paranasal sinuses are normal. The visualized portions of the orbits and globes are normal. The mastoid air cells are clear. The tree scout topogram shows no lytic lesion or fracture. Impression: No acute intracranial process. Stable sellar/suprasellar mass. Mild cerebral volume loss. Mild chronic small vessel ischemic disease. Electronically signed by: Merlin Willis MD (09/14/2019 12:46 PM) [id number]
[2019-09-14] MEDS ORDERED: IOHEXOL 300 MG/ML 100ML VIAL. IV ONE (13:00)
--- NOTE | 2019-09-14 13:01 | RAD ---
CT ABD PELV W/ IV CONTRST ONLY History: abd pain, AMS Comparison: 10/22/2018 Technique: After administration of intravenous contrast, helical CT of the abdomen and pelvis was performed from the lung bases through the ischial tuberosities. Coronal and sagittal reconstructions were obtained. 75 mL of Omnipaque 300 were used. One or more of the following dose reduction techniques were utilized: Automated exposure control (AEC), Adjustment of mA and/or kV according to patient size, Use of iterative reconstruction technique such as ASiR, CT scan done according to ALARA and image gently/image wisely Abdomen Findings: The visualized lung bases are clear. Coronary artery atherosclerotic disease. The liver, gallbladder, pancreas, and bilateral adrenal glands are normal. Calcified splenic granulomas. Symmetric renal enhancement. There is no focal renal mass. There is no hydronephrosis. Normal caliber large and small bowel. Right lower quadrant small bowel resection and anastomosis. Appendix is normal. There is no free fluid. There is no mesenteric or retroperitoneal adenopathy. Moderate aortoiliac atherosclerotic disease. Pelvis Findings: Urinary bladder is normal. No pelvic free fluid. There is no pelvic or inguinal adenopathy. Degenerative changes spine. Unchanged mild right inguinal canal fluid or surgical packing. IMPRESSION: No acute findings. Electronically signed by: Merlin Willis MD (09/14/2019 12:58 PM) [id number]
--- NOTE | 2019-09-14 13:25 | EKG ---
[facility] [address] [place] [address] Test Date: 2019-09-14 Test Time: 11:14:41 Pat Name: ROSANNA PATEL Department: Room: Gender: M Energy Scheduler: : 1945 Requested By: LUIZA STRAUSS Order Number: [id number] Reading MD: Measurements Intervals [place] Rate: 91 P: -21 ID: [id number] QRS: 22 QRSD: 80 T: 93 QT: 412 QTc: 509 Interpretive Statements SINUS RHYTHM T ABNORMALITY IN HIGH LATERAL LEADS PROLONGED QT ABNORMAL ECG RI6.01 No previous ECG available for comparison
[2019-09-14 15:00] VITALS: BP 131/75
[2019-09-14 19:00] VITALS: BP 119/76
[2019-09-14] MEDS: IV NORMAL SALINE 1000ML BAG 1,000 ML IV SCH (19:20)
[2019-09-14] MEDS ORDERED: QUEtiapine 25 MG TABLET. PO SCH (21:00)
[2019-09-14 23:06] VITALS: BP 129/65
[2019-09-15 03:00] VITALS: BP 127/57
[2019-09-15] MEDS: IV NORMAL SALINE 1000ML BAG 1,000 ML IV SCH (06:11)
[2019-09-15 07:00] VITALS: BP 146/80
--- NOTE | 2019-09-15 08:48 | SNU/HH DC ---
DISCHARGE ORDERS DISCHARGE INFORMATION: DISCHARGE DATE: Sep 15, 2019 FINAL DIAGNOSIS Problems Medical Problems: (1) Altered mental status Status: Acute CONDITION ON DISCHARGE: Stable CODE STATUS: Code Status: Full ASSISTED: SNF STAY <30 DAYS: No HOSPICE: HOSPICE: No LTAC: ADMIT TO LTAC: No POST DISCHARGE ORDERS: ACTIVITY ORDERS: Activity as tolerated WEIGHT BEARING STATUS: As tolerated CHECKS AFTER DISCHARGE: CHECKS AFTER DISCHARGE: Check blood press - daily DISCHARGE MEDICATIONS: Home Meds Active Scripts Amlodipine Besylate (AMLODIPINE BESYLATE) 5 Mg Tablet, 5 MG PO DAILY for HTN for 30 Days, #30 TAB Prov:TOR RINALDI MD 07/10/18 Reported Medications Pantoprazole Sodium (PROTONIX ) 40 Mg Tablet.dr, 40 MG PO DAILYAC for GERD, TAB 10/26/18 Discontinued Scripts Quetiapine Fumarate (SEROQUEL) 25 Mg Tablet, 1 TAB PO QHS, #30 TAB 2 Refills Prov:JAIRO COBOS MD 12/03/18 CLAUDIA GAO MD Sep 15, 2019 08:47
--- NOTE | 2019-09-15 08:53 | PDOC ---
Provider Note Provider Note Pt seen >H&P dictated. Spoke with neurology. Justicifation of Admission Dx: Justifications for Admission: Justification of Admission Dx: Yes CLAUDIA GAO MD Sep 15, 2019 08:53
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
[2019-09-15] MEDS: amLODIPine BESYLATE 5 MG TABLET PO SCH (09:36)
[2019-09-15] MEDS: PANTOPRAZOLE 40 MG TABLET.DR. PO SCH (09:36)
--- NOTE | 2019-09-15 09:40 | HP ---
ADMIT DATE: 09/14/2019 COMBINED HISTORY AND PHYSICAL AND DISCHARGE SUMMARY DATE OF DISCHARGE: 09/15/2019 REASON FOR ADMISSION TO THE HOSPITAL: Mental status changes. The patient has underlying dementia. CONSULTATION: Wilder. PROCEDURES DONE: CT head and CT of the abdomen and pelvis. HISTORY OF PRESENT ILLNESS: The patient is a 74-year-old male with dementia, history of pituitary adenoma, has been in the custodial, has history of hypertension, history of alcohol use in the past. He came with mental status changes, slightly more lethargic than usual. He had a CT head negative. Labs did not look anything bad. At the custodial, there was COVID going around. COVID test was done last night, report is pending. The patient was seen by Neurology; Dr. Crawford does not think anything needs to be addressed at this point. The patient was on Seroquel for dementia with agitation, which was on hold and mental status has improved back to his baseline. PAST MEDICAL HISTORY: Dementia, history of alcohol use, pituitary adenoma, and hypertension. The patient was last admitted 1 year ago. PAST SURGICAL HISTORY: Hernia repair. FAMILY HISTORY: Brother had cancer. SOCIAL HISTORY: Lives at custodial, ex-smoker, ex-alcoholic and ex-drug abuse. MEDICATIONS: Amlodipine daily and he is on Seroquel 25 mg daily. REVIEW OF SYMPTOMS: The patient does not talk from dementia. PHYSICAL EXAMINATION: GENERAL: The patient is comfortable, not in any distress. VITAL SIGNS: Temperature 97, pulse 84, respirations 17, blood pressure 131/75, and 96 on room air. HEENT: Head is atraumatic. Pupils equal. Oral cavity: No congestion. NECK: Supple. CHEST: Symmetrical. CARDIOVASCULAR: S1, S2. LUNGS: Clear. ABDOMEN: Soft. There is scar of surgery around the umbilical from previous surgery. EXTERNAL GENITALIA: No Ulrich. Incontinent. RECTAL: Deferred. EXTREMITIES: No calf tenderness, no edema. NEUROLOGIC: The patient is awake, but does not follow commands. LABORATORY STUDIES: Shows a white count 5, hemoglobin 13, and platelets 150. Electrolytes: Sodium 138, potassium 4.6, chloride 104, bicarbonate 28, anion gap 6, BUN 15, creatinine 1.2, and glucose 88. Lactic acid 1.4. Bilirubin 1.4. LFTs reasonably normal. Cortisol 2.8, slightly low. Urine shows some blood and few rbc's, leukocyte esterase negative. Had a CT head shows dementia and pituitary adenoma, known history. CT of the abdomen and pelvis was unremarkable. Chest x-ray was negative. FINAL IMPRESSION: 1. Mental status changes secondary to underlying dementia. 2. Chronic dementia secondary to alcohol and drug abuse in the past. 3. History of pituitary adenoma, stable. 4. Hypertension. 5. Possible Covid infection, pt from custodial ,which has multiple covid cases in the facility. PLAN: Neuro consult appreciated CT head no new changes old pituatory adenoma. Psychiatry consult for dementia with agitation at ID. covid test. check tsh ,cortisol levels. labs reviewed ok The patient is from custodial, COVID is running around at the nursing homes, so we will check a COVID test here, otherwise the patient can be discharged back safely to the custodial. Hold Seroquel and see how he does. CLAUDIA GAO MD DR: TOLU/jaun JOB#: [id number] / [id number] BENNY
[2019-09-15 11:15] VITALS: BP 142/74
[2019-09-15 15:00] VITALS: BP 157/94
--- NOTE | 2019-09-15 19:33 | PDOC1 ---
History & Psych Evaluation Date of Service: DOS: DATE: 09/15/19 TIME: 19:20 Source: Source: Caregiver, Chart review, Patient Identification: Identification 74-year-old -Guyanese gentleman with history of dementia. Chief Complaint: Chief Complaint Altered mental status, agitation History of Present Illness: HPI: He is a 74-year-old gentleman with history of pituitary adenoma and neurocognitive disorder resident of a skilled nursing admitted with altered mental status. He has history of hypertension and alcohol use in the past. CT scan reportedly negative for acute changes. He is a person under investigation for COVID 19. Aside from alcohol use abuse, apparently he does not have any prior psychiatric history. Upon [id number] interview, he appears quiet, unresponsive to verbal stimuli, staring into space and avoiding eye contact. Multiple attempts were made in presence of nurse to engage in conversation however he was resistant. RN reported that initially patient was communicative and interactive. Patient's presentation and posturing is suspected of catatonia. According to the collateral, provided by family, patient is having behavioral issues. They want medical education which could be safer for the patient. Patient is reportedly impulsive Past Psychiatric History: Pa psychiatric history is not obtainable from patient. According to the chart review history of alcohol abuse, illicit substance use, and smoking. No history of major psychiatric pathology History of suicide, nonsuicidal self-injurious behavior is not available due to patient factor. Collateral information would help to determine patient's safety. Past Medical History: History of pituitary adenoma Major neurocognitive disorder Family History: Psychiatric family history is not available due to patient factor. Social History: Social History: Patient is a resident of skilled nursing. He has history of alcohol abuse, illicit substance use in the past, and tobacco abuse Current Medications: Current Medications Current Medications Medications (Trade) Dose Ordered Sig/Deepak Start Time Stop Time Status Last Admin Dose Admin Amlodipine Besylate (Norvasc) 5 mg DAILY 09/15/19 09:00 09/15/19 09:36 5 MG Iohexol (Omnipaque 300 Mg/ml) 75 ml 1X ONCE 09/14/19 13:00 09/14/19 13:01 DC 09/14/19 12:38 75 ML Lorazepam (Ativan Inj) 1 mg 1X ONCE 09/15/19 19:00 09/15/19 19:01 DC Pantoprazole Sodium (Protonix) 40 mg DAILYAC 09/15/19 07:30 09/15/19 09:36 40 MG Quetiapine Fumarate (SEROquel) 25 mg QHS 09/14/19 21:00 Sodium Chloride 1,000 ml @ 75 mls/hr [id number] 09/14/19 16:45 09/15/19 08:54 DC 09/15/19 06:11 75 MLS/HR Allergies: Allergies: Coded Allergies: No Known Drug Allergies (Unverified , 04/03/13) Mental Status Examination: Mental Status Examination -Guyanese gentleman, thin and lean, disheveled Not cooperative, resistant to psychological exploration Disoriented Thought processes disorganized Auditory or visual hallucinations are not assessed this to due to patient factor Suicidal or homicidal thoughts are not assessable due to patient's factor Mood is dysphoric Affect is dysthymic Insight is poor Judgment is poor Impulse control is poor Attention span and concentration poor recent and remote memory impaired ROS: 14 point review of system is otherwise negative except for stated above. Physical Exam: Refer to Physician's note. [employer]SEM[employer]ER: No focal deficit MSK: No EPS, TDK, or abnormal involuntary movements Vitals: Vitals Vital Signs Date Time Temp Pulse Resp B/P (MAP) Pulse Ox O2 Delivery O2 Flow Rate FiO2 09/15/19 15:00 98.2 89 18 157/94 (115) 96 Room Air 98.2 Labs: Labs Laboratory Tests Test 09/14/19 11:15 09/14/19 11:30 09/14/19 18:00 09/15/19 08:00 White Blood Count 5.2 x10^3/uL (4.0-11.0) Red Blood Count 4.16 x10^6/uL (4.30-5.70) Hemoglobin 13.3 g/dL (13.0-17.5) Hematocrit 39.4 % (39.0-53.0) Mean Corpuscular Volume 95 fL (79-100) Mean Corpuscular Hemoglobin 32 pg (25-35) Mean Corpuscular Hemoglobin Concent 34 g/dL (31-37) Red Cell Distribution Width 12.7 % (11.5-14.5) Platelet Count 150 x10^3/uL (140-400) Neutrophils (%) (Auto) 40 % (31-73) Lymphocytes (%) (Auto) 45 % (24-48) Monocytes (%) (Auto) 13 % (0-9) Eosinophils (%) (Auto) 2 % (0-3) Basophils (%) (Auto) 1 % (0-3) Neutrophils # (Auto) 2.1 x10^3/uL (1.8-7.7) Lymphocytes # (Auto) 2.3 x10^3/uL (1.0-4.8) Monocytes # (Auto) 0.6 x10^3/uL (0.0-1.1) Eosinophils # (Auto) 0.1 x10^3/uL (0.0-0.7) Basophils # (Auto) 0.0 x10^3/uL (0.0-0.2) Sodium Level 138 mmol/L (136-145) Potassium Level 4.6 mmol/L (3.5-5.1) Chloride Level 104 mmol/L (98-107) Carbon Dioxide Level 28 mmol/L (21-32) Anion Gap 6 (6-14) Blood Urea Nitrogen 15 mg/dL (8-26) Creatinine 1.2 mg/dL (0.7-1.3) Estimated GFR (Cockcroft-Gault) 71.6 BUN/Creatinine Ratio 13 (6-20) Glucose Level 88 mg/dL (70-99) Lactic Acid Level 1.4 mmol/L (0.4-2.0) Calcium Level 9.2 mg/dL (8.5-10.1) Total Bilirubin 1.4 mg/dL (0.2-1.0) Aspartate Amino Transf (AST/SGOT) 56 U/L (15-37) Alanine Aminotransferase (ALT/SGPT) 39 U/L (16-63) Alkaline Phosphatase 67 U/L (46-116) Troponin I Quantitative < 0.017 ng/mL (0.000-0.055) Total Protein 7.9 g/dL (6.4-8.2) Albumin 3.2 g/dL (3.4-5.0) Albumin/Globulin Ratio 0.7 (1.0-1.7) Urine Collection Type Unknown Urine Color Rita Urine Clarity Clear Urine pH 6.0 (<5.0-8.0) Urine Specific [place] 1.015 (1.000-1.030) Urine Protein 30 mg/dL (NEG-TRACE) Urine Glucose (UA) Negative mg/dL (NEG) Urine Ketones (Stick) Negative mg/dL (NEG) Urine Blood Large (NEG) Urine Nitrite Negative (NEG) Urine Bilirubin Negative (NEG) Urine Urobilinogen Dipstick 4.0 mg/dL (0.2 mg/dL) Urine Leukocyte Esterase Negative (NEG) Urine RBC >40 /HPF (0-2) Urine WBC 1-4 /HPF (0-4) Urine Squamous Epithelial Cells Mod /LPF Urine Bacteria Many /HPF (0-FEW) Cortisol PM Sample 2.8 ug/dL (3.1-16.7) Cortisol AM Sample 4.1 ug/dL (4.3-22.4) Laboratory Tests Test 09/15/19 08:00 Cortisol AM Sample 4.1 ug/dL (4.3-22.4) Diagnosis: Diagnosis: Unspecified catatonia Major neurocognitive disorder with behavioral disturbances Unspecified mood disorder Assessment: He is a 74-year-old -Guyanese gentleman who appears in catatonic posturing, mute and not interactive. We will give Ativan challenge to determine any improvement if it was catatonia. Additionally, discontinue Seroquel as reportedly making patient more drowsy and sedated. Recommending Depakote which is relatively safer for impulsivity and agitation. Trazodone 12.5 mg twice a day for agitation. Please avoid sedatives and hypnotics for agitation Plan: Trazodone 12.5 mg twice a day as needed for agitation. Depakote 150 mg twice daily for impulsivity and behavioral disturbances associated with dementia. Discontinue Seroquel. Patient is not mentally stable enough to comprehend information. Once stable we will provide necessary information regarding medications and risk benefits. Monitor closely for symptomatology. Will adjust medications accordingly. Thank you for involving inpatient care. BRUNA RESENDIZ MD Sep 15, 2019 19:32
[2019-09-15 19:45] VITALS: BP 131/65
[2019-09-15] MEDS ORDERED: traZODone 50 MG TABLET. PO PRN (19:45)
[2019-09-15] MEDS ORDERED: DIVALPROEX DELAYED RELEASE 250 MG TABLET.DR. PO SCH (21:00)
[2019-09-15] MEDS: DIVALPROEX DELAYED RELEASE 250 MG TABLET.DR. PO SCH ×2 (21:30→21:35)
[2019-09-15 23:45] VITALS: BP 142/80
[2019-09-16 03:54] VITALS: BP 144/85
[2019-09-16 07:00] VITALS: BP 166/99
[2019-09-16] MEDS: PANTOPRAZOLE 40 MG TABLET.DR. PO SCH (07:25)
[2019-09-16] MEDS: amLODIPine BESYLATE 5 MG TABLET PO SCH (08:31)
[2019-09-16] MEDS ORDERED: ACETAMINOPHEN 650 MG SUPP.RECT. PR PRN ×2 (10:30→11:00)
[2019-09-16] MEDS ORDERED: ACETAMINOPHEN 325 MG TABLET. PO PRN (10:30)
[2019-09-16] MEDS: IV DEXTROSE 5% - 0.9 % NACL 1,000 ML IV SCH ×2 (10:36→21:30)
[2019-09-16 11:00] VITALS: BP 177/71
[2019-09-16] MEDS ORDERED: DEXAMETHASONE SOD PHOS 4 MG/ML VIAL IVP ONE (11:00)
--- NOTE | 2019-09-16 11:03 | PDOC ---
PROGRESS NOTES Date of Service: DATE: 09/16/19 TIME: 10:58 Subjective Subjective lethargic hard to wake him up , Objective Objective Vital Signs Date Time Temp Pulse Resp B/P (MAP) Pulse Ox O2 Delivery O2 Flow Rate FiO2 09/16/19 08:31 81 144/85 09/16/19 07:39 Room Air 09/16/19 07:00 98.8 20 97 98.8 Intake and Output 09/16/19 07:00 Intake Total 360 ml Balance 360 ml Intake Oral 360 ml # Voids 4 Physical Exam Heart: Regular rate, Normal S1, Normal S2 Lungs: Clear to auscultation MUSCULOSKELETAL: No deformity, No swelling Neck: Supple Neuro: Other (lethargic) Skin: No breakdown Diagnosis Problem List Problems Medical Problems: (1) Altered mental status Status: Acute Assessment Assessment Problems Medical Problems: (1) Altered mental status Status: Acute FINAL IMPRESSION:covid 19 infection. 1. Mental status changes secondary to underlying dementia. 2. Chronic dementia secondary to alcohol and drug abuse in the past. 3. History of pituitary adenoma, stable. 4. Hypertension. 5 Adrenal insuficency. PLAN: Neuro consult appreciated. psyche consult noted. low cortisol levels ,pt may benefit from low dose prednisone. Spoke with pt daughter. cxr -ve , wbc normal sat 94% on RA. labs ok, lethargic today start on iv fluids. agree with depokate+trazadone. [facility] is from [facility], COVID is running around at the nursing homes, so we will check a COVID test here, otherwise the patient can be discharged back safely to the [facility]. Hold Seroquel and see how he does. Plan Plan of Care Problems Medical Problems: (1) Altered mental status Status: Acute Comment Review of Relevant I have reviewed the following items elizabeth (where applicable) has been applied. Labs Microbiology 09/14/19 Blood Culture - Preliminary, Resulted NO GROWTH AFTER 1 DAY Medications Current Medications Acetaminophen (Tylenol Supp) 650 mg PRN Q6HRS PRN ID MILD PAIN / TEMP > 100.3'F; Start 09/16/19 at 10:30 Acetaminophen (Tylenol) 650 mg PRN Q6HRS PRN PO MILD PAIN / TEMP > 100.3'F; Start 09/16/19 at 10:30 Dextrose/Sodium Chloride 1,000 ml @ 100 mls/hr Q10H IV Last administered on 09/16/19at 10:36; Start 09/16/19 at 10:30 Divalproex Sodium (Depakote) 150 mg BID PO ; Start 09/15/19 at 21:00; Stop 09/15/19 at 21:29; Status DC Divalproex Sodium (Depakote) 250 mg HS PO ; Start 09/15/19 at 21:30 Lorazepam (Ativan Inj) 1 mg 1X ONCE IVP Last administered on 09/15/19at 20:29; Start 09/15/19 at 19:00; Stop 09/15/19 at 19:01; Status DC Trazodone HCl (Desyrel) 12.5 mg PRN BID PRN PO agitation and anxiety ; Start 09/15/19 at 19:45 Vitals/I & O Vital Sign - Last 24 Hours 09/15/19 09/15/19 09/15/19 09/15/19 11:15 15:00 19:45 20:00 Temp 98.4 98.2 97.7 98.4 98.2 97.7 Pulse 78 89 81 Resp 14 18 18 B/P (MAP) 142/74 (96) 157/94 (115) 131/65 (87) Pulse Ox 98 96 97 O2 Delivery Room Air Room Air Room Air Room Air 09/15/19 09/16/19 09/16/19 09/16/19 23:45 03:54 07:00 07:39 Temp 97.6 98.4 98.8 97.6 98.4 98.8 Pulse 80 81 84 Resp 16 18 20 B/P (MAP) 142/80 (100) 144/85 (104) 166/99 (121) Pulse Ox 91 96 97 O2 Delivery Room Air Room Air Room Air Room Air 09/16/19 08:31 Pulse 81 B/P (MAP) 144/85 Intake and Output 09/15/19 09/15/19 09/16/19 15:00 23:00 07:00 Intake Total 360 ml 0 ml 0 ml Balance 360 ml 0 ml 0 ml Justicifation of Admission Dx: Justifications for Admission: Justification of Admission Dx: Yes CLAUDIA GAO MD Sep 16, 2019 11:03
[2019-09-16] MEDS: predniSONE 10 MG TABLET PO SCH (11:34)
[2019-09-16 15:00] VITALS: BP 97/66
--- NOTE | 2019-09-16 17:25 | NUR ---
Patient has been non-verbal with me all day, only responding to painful stimuli and will move his arms around while changing him after incontinent episodes. IV fluids were started today since patient refusing to eat. Will continue to monitor patient for changes.
[2019-09-16 19:00] VITALS: BP 116/64
[2019-09-16] MEDS: VALPROIC ACID (AS SODIUM SALT) 250 MG in IV DEXTROSE 5% 50 ML IV SCH (21:59)
[2019-09-16 23:00] VITALS: BP 117/74
[2019-09-17 03:00] VITALS: BP 117/77
[2019-09-17 04:05] LABS: BASO % 0 % (0-3); EOS % 0 % (0-3); HEMATOCRIT 37.4 % (39.0-53.0); HEMOGLOBIN 12.5 g/dL (13.0-17.5); LYMPH # 1.3 x10^3/uL (1.0-4.8); LYMPH % 17 % (24-48); MEAN CORPUSCULAR HEMOGLOBIN 32 pg (25-35); MEAN CORPUSCULAR HGB CONC 34 g/dL (31-37); MEAN CORPUSCULAR VOLUME 95 fL (79-100); MONO # 0.3 x10^3/uL (0.0-1.1); MONO % 4 % (0-9); NEUT % 80 % (31-73); PLATELET COUNT 138 x10^3/uL (140-400); RED BLOOD COUNT 3.93 x10^6/uL (4.30-5.70); RED CELL DISTRIBUTION WIDTH 12.5 % (11.5-14.5); WHITE BLOOD COUNT 7.5 x10^3/uL (4.0-11.0)
[2019-09-17 04:26] LABS: CALCIUM 8.1 mg/dL (8.5-10.1); GFR 88.4; POTASSIUM 4.1 mmol/L (3.5-5.1)
[2019-09-17 07:00] VITALS: BP 141/84
[2019-09-17] MEDS: PANTOPRAZOLE 40 MG TABLET.DR. PO SCH (08:07)
[2019-09-17] MEDS: amLODIPine BESYLATE 5 MG TABLET PO SCH (08:08)
[2019-09-17] MEDS: predniSONE 10 MG TABLET PO SCH (08:08)
[2019-09-17] MEDS: IV DEXTROSE 5% - 0.9 % NACL 1,000 ML IV SCH ×2 (09:53→21:03)
[2019-09-17 11:00] VITALS: BP 102/58
--- NOTE | 2019-09-17 12:32 | PDOC ---
Infectious Disease Note Vital Sign Vital Signs Vital Signs Date Time Temp Pulse Resp B/P (MAP) Pulse Ox O2 Delivery O2 Flow Rate FiO2 09/17/19 08:08 71 141/84 09/17/19 07:55 Room Air 09/17/19 07:00 96.3 21 98 96.3 Labs Lab Laboratory Tests Test 09/17/19 03:30 White Blood Count 7.5 x10^3/uL (4.0-11.0) Red Blood Count 3.93 x10^6/uL (4.30-5.70) Hemoglobin 12.5 g/dL (13.0-17.5) Hematocrit 37.4 % (39.0-53.0) Mean Corpuscular Volume 95 fL (79-100) Mean Corpuscular Hemoglobin 32 pg (25-35) Mean Corpuscular Hemoglobin Concent 34 g/dL (31-37) Red Cell Distribution Width 12.5 % (11.5-14.5) Platelet Count 138 x10^3/uL (140-400) Neutrophils (%) (Auto) 80 % (31-73) Lymphocytes (%) (Auto) 17 % (24-48) Monocytes (%) (Auto) 4 % (0-9) Eosinophils (%) (Auto) 0 % (0-3) Basophils (%) (Auto) 0 % (0-3) Neutrophils # (Auto) 6.0 x10^3/uL (1.8-7.7) Lymphocytes # (Auto) 1.3 x10^3/uL (1.0-4.8) Monocytes # (Auto) 0.3 x10^3/uL (0.0-1.1) Eosinophils # (Auto) 0.0 x10^3/uL (0.0-0.7) Basophils # (Auto) 0.0 x10^3/uL (0.0-0.2) Sodium Level 135 mmol/L (136-145) Potassium Level 4.1 mmol/L (3.5-5.1) Chloride Level 103 mmol/L (98-107) Carbon Dioxide Level 22 mmol/L (21-32) Anion Gap 10 (6-14) Blood Urea Nitrogen 21 mg/dL (8-26) Creatinine 1.0 mg/dL (0.7-1.3) Estimated GFR (Cockcroft-Gault) 88.4 Glucose Level 183 mg/dL (70-99) Calcium Level 8.1 mg/dL (8.5-10.1) Thyroid Stimulating Hormone (TSH) 0.585 uIU/mL (0.358-3.74) Micro 09/13. ENTEROCOCCUS RAFFINOSUS Streptomycin Synergy Screen S Gentamicin Synergy Screen S ANTIMICROBIAL SUSCEPTIBILITY Final Comment POS ORAL TYPE 38 ENTEROCOCCUS RAFFINOSUS ANTIBIOTIC RESULT INTERPRETATION AMPICILLIN >8 R CIPROFLOXACIN <=1 S DAPTOMYCIN <=0.5 S NITROFURANTOIN <=32 S LINEZOLID <=1 S LEVOFLOXACIN <=1 S TETRACYCLINE >8 R VANCOMYCIN 0.5 S 09/14/19 Blood Culture - Preliminary, Resulted NO GROWTH AFTER 3 DAYS Objective Assessment COVID-19 positive E. raffinosus in urine, 09/13. UA unremarkable Encephalopathy Pituitary adenoma Dementia Hypertension h/o Hep C Plan Plan of Care Supportive care Maintain aspiration precautions Monitor WBC/temp and O2 sats Airborne isolation for COVID Discussed with nursing Full consult to follow Thank you Attending Co-Sign The patient was seen and interviewed as well as examined at the bedside. The chart was reviewed. The case was discussed. Agree with the plan of care. ELIGIO COLLADO APRN Sep 17, 2019 12:32 MARY BUTLER MD Sep 17, 2019 12:38
--- NOTE | 2019-09-17 12:46 | PDOC ---
PROGRESS NOTES Date of Service: DATE: 09/17/19 TIME: 12:42 Subjective Subjective pt slightly more awake than yesterday,not eating Objective Objective Vital Signs Date Time Temp Pulse Resp B/P (MAP) Pulse Ox O2 Delivery O2 Flow Rate FiO2 09/17/19 11:00 95.8 63 21 102/58 (73) 98 Room Air 95.8 Intake and Output 09/17/19 07:00 Intake Total 0 ml Balance 0 ml Intake Oral 0 ml # Voids 4 # Bowel Movements 1 Physical Exam Heart: Regular rate, Normal S1, Normal S2 Lungs: Clear to auscultation MUSCULOSKELETAL: No deformity, No swelling Neck: Supple Neuro: Other (lethargic) Skin: No breakdown Diagnosis Problem List Problems Medical Problems: (1) Altered mental status Status: Acute Assessment Assessment Problems Medical Problems: (1) Altered mental status Status: Acute FINAL IMPRESSION:Covid -19 infection with fever. 1. Mental status changes secondary to underlying dementia. 2. Chronic dementia secondary to alcohol and drug abuse in the past. 3. History of pituitary adenoma, stable. 4. Hypertension. 5 Adrenal insuficency. 6.UTI-enterococuss (100,000) PLAN: ID consult Levaquin for uti. Neuro consult appreciated. psyche consult noted. low cortisol levels ,pt may benefit from low dose prednisone.(IV Dexamethasone as pt not able to take oral meds) Spoke with pt daughter. cxr -ve , wbc normal sat 94% on RA. labs ok, lethargic today start on iv fluids. agree with depokate+trazadone.( IV depakote for now) dvt prevention lovenox The patient is from detention, COVID is running around at the nursing homes, so we will check a COVID test here, otherwise the patient can be discharged back safely to the detention. Hold Seroquel and see how he does. Plan Plan of Care Problems Medical Problems: (1) Altered mental status Status: Acute Comment Review of Relevant I have reviewed the following items elizabeth (where applicable) has been applied. Labs Laboratory Tests Test 09/17/19 03:30 White Blood Count 7.5 x10^3/uL (4.0-11.0) Red Blood Count 3.93 x10^6/uL (4.30-5.70) Hemoglobin 12.5 g/dL (13.0-17.5) Hematocrit 37.4 % (39.0-53.0) Mean Corpuscular Volume 95 fL (79-100) Mean Corpuscular Hemoglobin 32 pg (25-35) Mean Corpuscular Hemoglobin Concent 34 g/dL (31-37) Red Cell Distribution Width 12.5 % (11.5-14.5) Platelet Count 138 x10^3/uL (140-400) Neutrophils (%) (Auto) 80 % (31-73) Lymphocytes (%) (Auto) 17 % (24-48) Monocytes (%) (Auto) 4 % (0-9) Eosinophils (%) (Auto) 0 % (0-3) Basophils (%) (Auto) 0 % (0-3) Neutrophils # (Auto) 6.0 x10^3/uL (1.8-7.7) Lymphocytes # (Auto) 1.3 x10^3/uL (1.0-4.8) Monocytes # (Auto) 0.3 x10^3/uL (0.0-1.1) Eosinophils # (Auto) 0.0 x10^3/uL (0.0-0.7) Basophils # (Auto) 0.0 x10^3/uL (0.0-0.2) Sodium Level 135 mmol/L (136-145) Potassium Level 4.1 mmol/L (3.5-5.1) Chloride Level 103 mmol/L (98-107) Carbon Dioxide Level 22 mmol/L (21-32) Anion Gap 10 (6-14) Blood Urea Nitrogen 21 mg/dL (8-26) Creatinine 1.0 mg/dL (0.7-1.3) Estimated GFR (Cockcroft-Gault) 88.4 Glucose Level 183 mg/dL (70-99) Calcium Level 8.1 mg/dL (8.5-10.1) Thyroid Stimulating Hormone (TSH) 0.585 uIU/mL (0.358-3.74) Microbiology 09/14/19 Urine Culture - Final, Complete 09/14/19 Antimicrobic Susceptibility - Final, Complete 09/14/19 Blood Culture - Preliminary, Resulted NO GROWTH AFTER 3 DAYS Medications Current Medications Valproic Acid 250 mg/Dextrose 52.5 ml @ 52.5 mls/hr HS IV Last administered on 09/16/19at 21:59; Start 09/16/19 at 22:00 Vitals/I & O Vital Sign - Last 24 Hours 09/16/19 09/16/19 09/16/19 09/16/19 15:00 19:00 20:00 23:00 Temp 98.2 97.8 97.4 98.2 97.8 97.4 Pulse 98 72 75 Resp 22 18 18 B/P (MAP) 97/66 (76) 116/64 (81) 117/74 (88) Pulse Ox 97 99 98 O2 Delivery Room Air Room Air Room Air Room Air 09/17/19 09/17/19 09/17/19 09/17/19 03:00 07:00 07:55 08:08 Temp 97.3 96.3 97.3 96.3 Pulse 70 73 71 Resp 21 21 B/P (MAP) 117/77 (90) 141/84 (103) 141/84 Pulse Ox 99 98 O2 Delivery Room Air Room Air Room Air 09/17/19 11:00 Temp 95.8 95.8 Pulse 63 Resp 21 B/P (MAP) 102/58 (73) Pulse Ox 98 O2 Delivery Room Air Intake and Output 09/16/19 09/16/19 09/17/19 15:00 23:00 07:00 Intake Total 0 ml 0 ml Balance 0 ml 0 ml Justicifation of Admission Dx: Justifications for Admission: Justification of Admission Dx: Yes CLAUDIA GAO MD Sep 17, 2019 12:46
[2019-09-17] MEDS ORDERED: ENOXAPARIN 40 MG/0.4 ML SYRINGE. SQ SCH (13:00)
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
[2019-09-17 15:00] VITALS: BP 128/72
[2019-09-17 19:00] VITALS: BP 125/72
[2019-09-17] MEDS: VALPROIC ACID (AS SODIUM SALT) 250 MG in IV DEXTROSE 5% 50 ML IV SCH (21:05)
[2019-09-17 23:00] VITALS: BP 135/74
[2019-09-18 03:00] VITALS: BP 136/88
[2019-09-18 07:58] VITALS: BP 141/72
--- NOTE | 2019-09-18 08:47 | PDOC ---
PROGRESS NOTES Date of Service: DATE: 09/18/19 TIME: 08:45 Subjective Subjective pt is awake and talking Objective Objective Vital Signs Date Time Temp Pulse Resp B/P (MAP) Pulse Ox O2 Delivery O2 Flow Rate FiO2 09/18/19 07:58 96.8 80 18 141/72 (95) 94 Room Air 96.8 Intake and Output 09/18/19 07:00 Intake Total 1075 ml Balance 1075 ml Intake Oral 0 ml IV Total 1075 ml # Voids 4 # Bowel Movements 4 Physical Exam Heart: Regular rate, Normal S1, Normal S2 Lungs: Clear to auscultation MUSCULOSKELETAL: No deformity, No swelling Neck: Supple Neuro: Other (awake) Skin: No breakdown Diagnosis Problem List Problems Medical Problems: (1) Altered mental status Status: Acute Assessment Assessment Problems Medical Problems: (1) Altered mental status Status: Acute FINAL IMPRESSION:Covid -19 infection with fever. 1. Mental status changes secondary to underlying dementia. 2. Chronic dementia secondary to alcohol and drug abuse in the past. 3. History of pituitary adenoma, stable. 4. Hypertension. 5 Adrenal insuficency. 6.UTI-enterococuss (100,000) PLAN: back [facility]. d/c back to [facility] today ID consult appreciated Levaquin for uti. Neuro consult appreciated. psyche consult noted. low cortisol levels ,pt may benefit from low dose prednisone.(IV Dexamethasone as pt not able to take oral meds) Spoke with pt daughter. cxr -ve , wbc normal sat 94% on RA. labs ok, lethargic today start on iv fluids. agree with depokate+trazadone.( IV depakote for now) dvt prevention lovenox The [facility] is from [facility], COVID is running around at the nursing homes, so we will check a COVID test here, otherwise the patient can be discharged back safely to the prison. Hold Seroquel and see how he does. Plan Plan of Care Problems Medical Problems: (1) Altered mental status Status: Acute Comment Review of Relevant I have reviewed the following items elizabeth (where applicable) has been applied. Labs Microbiology 09/14/19 Urine Culture - Final, Complete 09/14/19 Antimicrobic Susceptibility - Final, Complete 09/14/19 Blood Culture - Preliminary, Resulted NO GROWTH AFTER 3 DAYS Medications Current Medications Enoxaparin Sodium (Lovenox 40mg Syringe) 40 mg Q12HR SQ ; Start 09/18/19 at 09:00 Enoxaparin Sodium (Lovenox 40mg Syringe) 40 mg Q24H SQ Last administered on 09/17/19at 13:17; Start 09/17/19 at 13:00; Stop 09/17/19 at 14:13; Status DC Levofloxacin/ Dextrose 100 ml @ 100 mls/hr Q24H IV Last administered on 09/17/19at 13:16; Start 09/17/19 at 13:00 Vitals/I & O Vital Sign - Last 24 Hours 09/17/19 09/17/19 09/17/19 09/17/19 11:00 15:00 19:00 20:00 Temp 95.8 97.7 97.7 95.8 97.7 97.7 Pulse 63 82 83 Resp 21 21 18 B/P (MAP) 102/58 (73) 128/72 (90) 125/72 (89) Pulse Ox 98 98 98 O2 Delivery Room Air Room Air Room Air Room Air 09/17/19 09/18/19 09/18/19 23:00 03:00 07:58 Temp 97.2 97.8 96.8 97.2 97.8 96.8 Pulse 82 85 80 Resp 18 18 18 B/P (MAP) 135/74 (94) 136/88 (104) 141/72 (95) Pulse Ox 98 98 94 O2 Delivery Room Air Room Air Room Air Intake and Output 09/17/19 09/17/19 09/18/19 15:00 23:00 07:00 Intake Total 1075 ml 0 ml Balance 1075 ml 0 ml Justicifation of Admission Dx: Justifications for Admission: Justification of Admission Dx: Yes CLAUDIA GAO MD Sep 18, 2019 08:47
[2019-09-18] MEDS ORDERED: DIVA250T4 PO (08:52)
[2019-09-18] MEDS ORDERED: PRED-220 PO (08:52)
[2019-09-18] MEDS ORDERED: LEVO500T59 PO (08:52)
[2019-09-18] MEDS ORDERED: ENOX40DI3 SQ (08:52)
[2019-09-18] MEDS ORDERED: TRAZ-118 PO (08:52)
--- NOTE | 2019-09-18 08:53 | SNU/HH DC ---
DISCHARGE ORDERS DISCHARGE INFORMATION: DISCHARGE DATE: Sep 15, 2019 FINAL DIAGNOSIS Problems Medical Problems: (1) Altered mental status Status: Acute CONDITION ON DISCHARGE: Stable CODE STATUS: Code Status: Full POST DISCHARGE ORDERS: ACTIVITY ORDERS: Activity as tolerated WEIGHT BEARING STATUS: As tolerated DIET AFTER DISCHARGE: Low Sodium 2 gm CHECKS AFTER DISCHARGE: CHECKS AFTER DISCHARGE: Check blood press - daily DISCHARGE MEDICATIONS: Home Meds Active Scripts Divalproex Sodium (DEPAKOTE) 250 Mg Tablet.dr, 250 MG PO DAILY for agitation for 30 Days, #30 TAB Prov:CLAUDIA GAO MD 09/18/19 Levofloxacin (LEVAQUIN) 500 Mg Tablet, 500 MG PO DAILY for uti for 5 Days, #5 TAB Prov:CLAUDIA GAO MD 09/18/19 Prednisone (PREDNISONE ) 10 Mg Tablet, 10 MG PO DAILY for adrenal insufienvy for 30 Days, #30 TAB Prov:CLAUDIA GAO MD 09/18/19 Trazodone Hcl (TRAZODONE HCL) 50 Mg Tablet, 12.5 MG PO PRN BID PRN for agitation and anxiety for 30 Days, TAB Prov:CLAUDIA GAO MD 09/18/19 Enoxaparin Sodium (ENOXAPARIN SODIUM) 40 Mg/0.4 Ml Disp.syrin, 40 MG SQ Q12HR for dvt prevention for 14 Days, DIS.SYR Prov:CLAUDIA GAO MD 09/18/19 Amlodipine Besylate (AMLODIPINE BESYLATE) 5 Mg Tablet, 5 MG PO DAILY for HTN for 30 Days, #30 TAB Prov:TOR RINALDI MD 07/10/18 Reported Medications Pantoprazole Sodium (PROTONIX ) 40 Mg Tablet.dr, 40 MG PO DAILYAC for GERD, TAB 10/26/18 Discontinued Scripts Quetiapine Fumarate (SEROQUEL) 25 Mg Tablet, 1 TAB PO QHS, #30 TAB 2 Refills Prov:JAIRO COBOS MD 12/03/18 CLAUDIA GAO MD Sep 18, 2019 08:53
[2019-09-18] MEDS ORDERED: ENOXAPARIN 40 MG/0.4 ML SYRINGE. SQ SCH (09:00)
[2019-09-18] MEDS: predniSONE 10 MG TABLET PO SCH (09:49)
[2019-09-18] MEDS: PANTOPRAZOLE 40 MG TABLET.DR. PO SCH (09:49)
[2019-09-18] MEDS: amLODIPine BESYLATE 5 MG TABLET PO SCH (09:51)
--- NOTE | 2019-09-18 10:52 | NUR ---
Report called to [facility] at [facility]. Pt will be transported by cart.
--- NOTE | 2019-09-18 11:35 | PDOC ---
PROGRESS NOTES Assessment Problems Medical Problems: (1) Altered mental status Status: Acute Altered mental status, no sign of any acute neurological issue Dementia, probably Alzheimer's, there is a history of alcohol abuse that could contribute. He is getting worse Pituitary macroadenoma, stable, no sign of pituitary apoplexy or visual field loss COVID positive Urinary tract infection Psychiatry saw him and started trazodone and Depakote Plan Okay for discharge Not a candidate for pituitary resection Subjective None Objective Vital Signs Date Time Temp Pulse Resp B/P (MAP) Pulse Ox O2 Delivery O2 Flow Rate FiO2 09/18/19 09:51 80 141/72 09/18/19 08:00 Room Air 09/18/19 07:58 96.8 18 94 96.8 Intake and Output 09/18/19 07:00 Intake Total 1075 ml Balance 1075 ml Intake Oral 0 ml IV Total 1075 ml # Voids 4 # Bowel Movements 4 PHYSICAL EXAM Brief exam done from the doorway, he alerts to voice and turns, follows commands Review of Relevant I have reviewed the following items elizabeth (where applicable) has been applied. Labs Laboratory Tests Test 09/17/19 03:30 White Blood Count 7.5 x10^3/uL (4.0-11.0) Red Blood Count 3.93 x10^6/uL (4.30-5.70) Hemoglobin 12.5 g/dL (13.0-17.5) Hematocrit 37.4 % (39.0-53.0) Mean Corpuscular Volume 95 fL (79-100) Mean Corpuscular Hemoglobin 32 pg (25-35) Mean Corpuscular Hemoglobin Concent 34 g/dL (31-37) Red Cell Distribution Width 12.5 % (11.5-14.5) Platelet Count 138 x10^3/uL (140-400) Neutrophils (%) (Auto) 80 % (31-73) Lymphocytes (%) (Auto) 17 % (24-48) Monocytes (%) (Auto) 4 % (0-9) Eosinophils (%) (Auto) 0 % (0-3) Basophils (%) (Auto) 0 % (0-3) Neutrophils # (Auto) 6.0 x10^3/uL (1.8-7.7) Lymphocytes # (Auto) 1.3 x10^3/uL (1.0-4.8) Monocytes # (Auto) 0.3 x10^3/uL (0.0-1.1) Eosinophils # (Auto) 0.0 x10^3/uL (0.0-0.7) Basophils # (Auto) 0.0 x10^3/uL (0.0-0.2) Sodium Level 135 mmol/L (136-145) Potassium Level 4.1 mmol/L (3.5-5.1) Chloride Level 103 mmol/L (98-107) Carbon Dioxide Level 22 mmol/L (21-32) Anion Gap 10 (6-14) Blood Urea Nitrogen 21 mg/dL (8-26) Creatinine 1.0 mg/dL (0.7-1.3) Estimated GFR (Cockcroft-Gault) 88.4 Glucose Level 183 mg/dL (70-99) Calcium Level 8.1 mg/dL (8.5-10.1) Thyroid Stimulating Hormone (TSH) 0.585 uIU/mL (0.358-3.74) Microbiology 09/14/19 Urine Culture - Final, Complete 09/14/19 Antimicrobic Susceptibility - Final, Complete 09/14/19 Blood Culture - Preliminary, Resulted NO GROWTH AFTER 4 DAYS Medications Current Medications Iohexol (Omnipaque 300 Mg/ml) 75 ml 1X ONCE IV Last administered on 09/14/19at 12:38; Start 09/14/19 at 13:00; Stop 09/14/19 at 13:01; Status DC Sodium Chloride 1,000 ml @ 75 mls/hr [id number] IV Last administered on 09/15/19at 06:11; Start 09/14/19 at 16:45; Stop 09/15/19 at 08:54; Status DC Amlodipine Besylate (Norvasc) 5 mg DAILY PO Last administered on 09/18/19at 09:51; Start 09/15/19 at 09:00 Pantoprazole Sodium (Protonix) 40 mg DAILYAC PO Last administered on 09/18/19at 09:49; Start 09/15/19 at 07:30 Quetiapine Fumarate (SEROquel) 25 mg QHS PO ; Start 09/14/19 at 21:00; Stop 09/15/19 at 19:35; Status DC Lorazepam (Ativan Inj) 1 mg 1X ONCE IVP Last administered on 09/15/19at 20:29; Start 09/15/19 at 19:00; Stop 09/15/19 at 19:01; Status DC Trazodone HCl (Desyrel) 12.5 mg PRN BID PRN PO agitation and anxiety ; Start 09/15/19 at 19:45 Divalproex Sodium (Depakote) 150 mg BID PO ; Start 09/15/19 at 21:00; Stop 09/15/19 at 21:29; Status DC Divalproex Sodium (Depakote) 250 mg HS PO ; Start 09/15/19 at 21:30; Stop 09/16/19 at 21:41; Status DC Dextrose/Sodium Chloride 1,000 ml @ 100 mls/hr Q10H IV Last administered on 09/17/19at 21:03; Start 09/16/19 at 10:30 Acetaminophen (Tylenol) 650 mg PRN Q6HRS PRN PO MILD PAIN / TEMP > 100.3'F; Start 09/16/19 at 10:30 Acetaminophen (Tylenol Supp) 650 mg PRN Q6HRS PRN [place] MILD PAIN / TEMP > 100.3'F; Start 09/16/19 at 10:30; Stop 09/17/19 at 13:59; Status DC Prednisone (Prednisone) 10 mg DAILY PO Last administered on 09/18/19at 09:49; Start 09/16/19 at 11:00 Dexamethasone Sodium Phosphate (Decadron) 2 mg 1X ONCE IVP Last administered on 09/16/19at 11:34; Start 09/16/19 at 11:00; Stop 09/16/19 at 11:01; Status DC Acetaminophen (Tylenol Supp) 650 mg PRN Q6HRS PRN [place] MILD PAIN / TEMP > 100.3'F; Start 09/16/19 at 11:00 Valproic Acid 250 mg/Dextrose 52.5 ml @ 52.5 mls/hr HS IV Last administered on 09/17/19at 21:05; Start 09/16/19 at 22:00 Levofloxacin/ Dextrose 100 ml @ 100 mls/hr Q24H IV Last administered on 09/17/19 at 13:16; Start 09/17/19 at 13:00 Enoxaparin Sodium (Lovenox 40mg Syringe) 40 mg Q24H SQ Last administered on 09/17/19at 13:17; Start 09/17/19 at 13:00; Stop 09/17/19 at 14:13; Status DC Enoxaparin Sodium (Lovenox 40mg Syringe) 40 mg Q12HR SQ Last administered on 09/18/19at 09:49; Start 09/18/19 at 09:00 Active Scripts Active Depakote (Divalproex Sodium) 250 Mg Tablet.dr 250 Mg PO DAILY 30 Days Levaquin (Levofloxacin) 500 Mg Tablet 500 Mg PO DAILY 5 Days Prednisone (Prednisone) 10 Mg Tablet 10 Mg PO DAILY 30 Days Trazodone Hcl 50 Mg Tablet 12.5 Mg PO PRN BID PRN 30 Days Enoxaparin Sodium 40 Mg/0.4 Ml Disp.syrin 40 Mg SQ Q12HR 14 Days Amlodipine Besylate 5 Mg Tablet 5 Mg PO DAILY 30 Days Reported Protonix (Pantoprazole Sodium) 40 Mg Tablet.dr 40 Mg PO DAILYAC Vitals/I & O Vital Sign - Last 24 Hours 09/17/19 09/17/19 09/17/19 09/17/19 15:00 19:00 20:00 23:00 Temp 97.7 97.7 97.2 97.7 97.7 97.2 Pulse 82 83 82 Resp 21 18 18 B/P (MAP) 128/72 (90) 125/72 (89) 135/74 (94) Pulse Ox 98 98 98 O2 Delivery Room Air Room Air Room Air Room Air 09/18/19 09/18/19 09/18/19 09/18/19 03:00 07:58 08:00 09:51 Temp 97.8 96.8 97.8 96.8 Pulse 85 80 80 Resp 18 18 B/P (MAP) 136/88 (104) 141/72 (95) 141/72 Pulse Ox 98 94 O2 Delivery Room Air Room Air Room Air Intake and Output 09/17/19 09/17/19 09/18/19 15:00 23:00 07:00 Intake Total 1075 ml 0 ml Balance 1075 ml 0 ml Justicifation of Admission Dx: Justifications for Admission: Justification of Admission Dx: Yes CONRAD LIRA MD Sep 18, 2019 11:35
--- NOTE | 2019-09-18 11:40 | NUR ---
Pt discharged back to facility.
[2019-09-18 11:44] VITALS: BP 126/74
--- NOTE | 2019-09-18 15:20 | PDOC ---
Provider Note Provider Note Discharge summary dictated.#[id number]. Justicifation of Admission Dx: Justifications for Admission: Justification of Admission Dx: Yes CLUADIA GAO MD Sep 18, 2019 15:20
--- NOTE | 2019-09-18 15:58 | DS ---
DATE OF DISCHARGE: 09/18/2019 REASON FOR ADMISSION TO THE HOSPITAL: Mental status changes. CONSULTATIONS: 1. Dr. Crawford. 2. Onur Remy MD, Psychiatry. 3. Dr. Michelle, Infectious Disease. PROCEDURES DONE: CT head, CT of the abdomen and pelvis. COMPLICATIONS: None. HOSPITAL COURSE: The patient is a 74-year-old male patient who [facility], and at the [facility] where he [facility], COVID was more prominent. He was sent because of more lethargy, confusion, sleeping a lot. CT head was negative. Unfortunately, his COVID test was positive. His white count was normal. Chest x-ray was negative. Oxygen was normal saturation. The patient was seen by Psychiatry for agitation, it was thought secondary to underlying dementia. Medication was changed. The patient also had a UTI, Enterococcus raffinosus sensitive to Levaquin. The patient was treated for a total of 5 days of Levaquin. Blood culture is negative and the patient also had a low cortisol level in the morning and evening levels and it was felt that the patient may benefit from prednisone, was started on 10 mg. The patient was also started on trazodone to help him sleep and Depakote for agitation by the psychiatrist. On the whole, the patient's condition was improving, it was felt that he can be discharged back to the [facility]. FINAL DIAGNOSES: 1. Metabolic encephalopathy. 2. Dementia, underlying problem. 3. COVID-19 infection. 4. Urinary tract infection with Enterococcus. 5. Hypertension. 6. History of alcohol and drug abuse in the past contributing to dementia. DISPOSITION: Back [facility] the [facility] and see [facility] for discharge medications. CLAUDIA GAO MD DR: TOLU/jaun JOB#: [id number] / [id number]
== END 2019-09-18 11:40 | DRG 177 ==
LOC: ER 10:58 → 6 SOUTH 13:21
PROVIDERS: ADMIT Internal Medicine; ATTEND Internal Medicine
DX: U07.1 COVID-19 (principal); G93.41 Metabolic encephalopathy; N39.0 Urinary tract infection, site not specified; F01.51 Vascular dementia, unspecified severity, with behavioral disturbance; F10.27 Alcohol dependence with alcohol-induced persisting dementia; F20.2 Catatonic schizophrenia; Z16.11 Resistance to penicillins; B95.2 Enterococcus as the cause of diseases classified elsewhere; D35.2 Benign neoplasm of pituitary gland; E78.00 Pure hypercholesterolemia, unspecified; E78.5 Hyperlipidemia, unspecified; F39 Unspecified mood [affective] disorder; I10 Essential (primary) hypertension; Z80.9 Family history of malignant neoplasm, unspecified; Z87.11 Personal history of peptic ulcer disease; Z87.891 Personal history of nicotine dependence; K21.9 Gastro-esophageal reflux disease without esophagitis; M19.90 Unspecified osteoarthritis, unspecified site; Z79.899 Other long term (current) drug therapy
CPT/HCPCS: 36415; 70450; 71045; 74177; 80048; 80053; 81001; 82533; 83605; 84443; 84484; 85025; 87040; 87077; 87086; 87186; 93005; 99285; J1100; J1650; J1956; J2060; J3490; J7030; J7042; J7060; J7512; Q9967; G0378; U0003-CS